=== PATIENT | female | born 1985 | race Caucasian/White ===

== ENCOUNTER → 2017-06-23 | Outpatient (CLI) | payer SELFPAY ==
--- NOTE | 2017-06-24 08:16 | RADIOLOGY REPORT (SQ) ---
EXAM DESCRIPTION: U/S OB TRANSVAGINAL W/O DOP COMPLETED DATE/TIME: 06/23/2017 3:43 pm REASON FOR STUDY: WITH INCONCLUSIVE VIABILITY, NOT APPLICABLE OR UNSPECIFIED O36.80 X0 W INCONCLUSIVE VIABILITY, UNSP Z34.81 ENCOUNTER FOR SUPRVSN OF NORMAL , FIRST TRIM TECHNIQUE: Endovaginal static and realtime grayscale images acquired of the pelvis. Additional selec hemal spectral and color Doppler images recorded. All images stored on PACs. bHC,334 LIMITATIONS: None. FINDINGS: UTERUS: No visualized intrauterine . Uterus measures 9.8 x 5.7 x 4.8 cm in size. Endometrial stripe 9 mm in thickness. No decidual reaction or intrauterine gestational sac is iden tified. Cervix closed, no nabothian cysts. RIGHT ADNEXA: Normal ovary with normal vascular flow. Right ovary 2.6 x 2.4 x 1.6 cm in size. Minimal right adnexal free fluid. No adnexal masses. LEFT ADNEXA: Normal left ovary flow. Left ovary 2.7 x 2.4 x 1.9 cm in size. There is a small 1.6 x 1.4 cm complex cyst left ovary, likely the corpus luteum. Left ovarian ectopic could not entirely be excluded. No adnexal free fluid. No adnexal masses. FREE FLUID: Small amount of posterior cul-de-sac free fluid OTHER: No other significant finding. IMPRESSION: NO VISUALIZED INTRA- OR EXTRAUTERINE . LEFT OVARY HEMORRHAGIC CYST LIKELY THE CORPUS LUTEUM. ECTOPIC CANNOT BE EXCLUDED. FOLLOW-UP ULTRASOUND AND SERIAL BHCG LEVELS STRONGLY RECOMMENDED TO ACCURATELY ASSESS STATU S. COMMENT: THIS REPORT WAS CALLED TO THE ROSE TRUJILLO AT THE [facility] DEPARTMENT, 1545 HOURS 7 TECHNICAL DOCUMENTATION: JOB ID: [id number] [employer]- All Rights Reserved COMPARISON: None. 08/17/2014
== END ==
LOC: RAD 14:14
PROVIDERS: ATTEND Nurse Practitioner Women's Health
DX: O36.80X0 Pregnancy with inconclusive fetal viability, not applicable or unspecified (principal); O34.80 Maternal care for other abnormalities of pelvic organs, unspecified trimester; N83.202 Unspecified ovarian cyst, left side
CPT/HCPCS: 36415; 76817; 84702

== ENCOUNTER → 2017-06-26 | Outpatient (CLI) | payer SELFPAY ==
[~2017-06-26] MED LIST: CEFAZOLIN INJ 1 GM VIAL ONE
== END ==
LOC: OCH 09:35
DX: O36.80X0 Pregnancy with inconclusive fetal viability, not applicable or unspecified (principal); Z3A.00 Weeks of gestation of pregnancy not specified
CPT/HCPCS: 36415; 84702

== ENCOUNTER → 2017-06-27 | Outpatient (CLI) | payer SELFPAY | LOC: OCH 10:11 | DX: O36.80X0 Pregnancy with inconclusive fetal viability, not applicable or unspecified (principal); Z3A.00 Weeks of gestation of pregnancy not specified | CPT/HCPCS: 36415; 84702 ==

== ENCOUNTER 2017-06-28 10:59 | Emergency (ER) | payer SELFPAY ==
[2017-06-28 11:04] VITALS: BP 132/84
[2017-06-28 11:42] LABS: APPEARANCE,URINE CLEAR; BILIRUBIN,URINE NEGATIVE (NEGATIVE); GLUCOSE, URINE NEGATIVE (NEGATIVE); KETONES,URINE NEGATIVE (NEGATIVE); LEUKOCYTE ESTERASE,URINE NEGATIVE (NEGATIVE); NITRITE,URINE NEGATIVE (NEGATIVE); PROTEIN,URINE NEGATIVE (NEGATIVE); URINE SPECIFIC GRAVITY 1.008; UROBILINOGEN,URINE NEGATIVE mg/dL (<2.0)
[2017-06-28 11:48] LABS: ABSOLUTE EOSINOPHILS # (AUTO) 0.1 10^3/uL (0.0-0.6); ABSOLUTE LYMPHOCYTES (AUTO) 1.4 10^3/uL (0.5-4.7); ABSOLUTE MONOCYTES (AUTO) 0.5 10^3/uL (0.1-1.4); ABSOLUTE NEUT (AUTO) 5.9 10^3/uL (1.7-8.2); BASOPHILS % (AUTO) 0.5 % (0-2); EOSINOPHILS % (AUTO) 0.8 % (0-6); HEMATOCRIT 33.2 % (36.0-47.0); HGB HCT DIFFERENCE 2.8; LYMPHOCYTES % (AUTO) 18.2 % (13-45); MEAN CORPUSCULAR HEMOGLOBIN 34.4 pg (27.0-33.4); MEAN CORPUSCULAR HGB CONC 36.1 g/dL (32.0-36.0); MEAN CORPUSCULAR VOLUME 96 fl (80-97); MONOCYTES % (AUTO) 5.9 % (3-13); RED BLOOD COUNT 3.48 10^6/uL (3.72-5.28); RED CELL DISTRIBUTION WIDTH 12.6 % (11.5-14.0); SEGMENTED NEUTROPHILS % (AUTO) 74.6 % (42-78); WHITE BLOOD COUNT 7.9 10^3/uL (4.0-10.5)
--- NOTE | 2017-06-28 11:51 | ER Document Report ---
ED Medical Screen (RME) - General Mode of Arrival: Ambulatory Information source: Patient TRAVEL OUTSIDE OF THE U.S. IN LAST 30 DAYS: No <JAVIER IRVIN - Last Filed: 06/28/17 11:16> <ELAINE ROSENBAUM - Last Filed: 06/28/17 12:31> - General Chief Complaint: Pelvic Pain Stated Complaint: SIDE PAIN Time Seen by Provider: 06/28/17 11:08 Notes: Patient is a 31 year old female presenting to the emergency department for 2 week history of left sided abdominal pain. Patient had an ectopic with a right sided salpingectomy. Patient states 2 weeks ago in [place] she had a transvaginal ultrasound she was . Patient is being seen by the health department for her and her last ultrasound on 06/23 showed a left hemorrhagic cyst, no intrauterine , cannot exclude ectopic. Patient is scheduled for another ultrasound and bloodwork next week but she came in because of the pain. Patient is A2. (JAVIER IRVIN) - Related Data Allergies/Adverse Reactions: No Known Allergies Allergy (Verified 06/28/17 11:03) Home Medications: Current Home Medications No Home Medications 06/28/17 [History] Past Medical History - General Last Menstrual Period: 05/13/17 - Social History Chew tobacco use (# tins/day): No Frequency of alcohol use: None Drug Abuse: Marijuana Pulmonary Medical History: Reports: Hx Asthma - athletic Renal/ Medical History: Denies: Hx Peritoneal Dialysis Psychiatric Medical History: Reports: Hx Anxiety Past Surgical History: Reports: Hx Section, Hx Gynecologic Surgery - Right tube removed due to rupture ectopic, Hx Oral Surgery - Immunizations Hx Diphtheria, Pertussis, Tetanus Vaccination: No History of Influenza Vaccine for 06/2017 - 11/2017 Season: No <JAVIER IRVIN - Last Filed: 06/28/17 11:16> Physical Exam <JAVIER IRVIN - Last Filed: 06/28/17 11:16> <ELAINE ROSENBAUM - Last Filed: 06/28/17 12:31> - Vital signs Vitals: Temp Pulse Resp BP Pulse Ox 98.5 F 105 H 20 132/84 H 100 06/28/17 11:03 06/28/17 11:03 06/28/17 11:03 06/28/17 11:03 06/28/17 11:03 - Notes Notes: GENERAL: Alert, interacts well. No acute distress. LUNGS: No respiratory distress. (JAVIER IRVIN) Mild left lower quadrant abdominal pain, no guarding rigidity or rebounding. ( ELAINE ROSENBAUM) Course - Laboratory Result Diagrams: 06/28/17 11:25 06/28/17 11:25 <ELAINE ROSENBAUM - Last Filed: 06/28/17 12:31> - Vital Signs Vital signs: Temp Pulse Resp BP Pulse Ox 98.5 F 105 H 20 132/84 H 100 06/28/17 11:03 06/28/17 11:03 06/28/17 11:03 06/28/17 11:03 06/28/17 11:03 - Laboratory Laboratory results interpreted by me: 06/28/17 06/28/17 06/28/17 11:25 11:25 11:25 RBC 3.48 L Hct 33.2 L MCH 34.4 H MCHC 36.1 H Beta HCG, Quant 9615.00 H Urine Blood SMALL H Scribe Documentation - Scribe Written by Scribe:: Charlotte Sullivan, 06/28/2017 11:52 acting as scribe for :: Maverick <JAVIER IRVIN - Last Filed: 06/28/17 11:16>
[2017-06-28 12:02] LABS: ALANINE AMINOTRANSFERASE 30 U/L (9-52); ALBUMIN 4.9 g/dL (3.5-5.0); ALKALINE PHOSPHATASE 82 U/L (38-126); ANION GAP 12 (5-19); ASPARTATE AMINO TRANSFERASE 21 U/L (14-36); BILIRUBIN,DIRECT 0.4 mg/dL (0.0-0.4); BILIRUBIN,TOTAL 1.1 mg/dL (0.2-1.3); BLOOD UREA NITROGEN 12 mg/dL (7-20); CALCIUM 9.4 mg/dL (8.4-10.2); CARBON DIOXIDE 25 mmol/L (22-30); CHLORIDE 106 mmol/L (98-107); CREATININE RESULT 0.59 mg/dL (0.52-1.25); GLUCOSE 89 mg/dL (75-110); POTASSIUM 4.3 mmol/L (3.6-5.0); SODIUM 143.4 mmol/L (137-145); TOTAL PROTEIN 8.1 g/dL (6.3-8.2)
--- NOTE | 2017-06-28 13:36 | ER Document Report ---
ED General - General Chief Complaint: Pelvic Pain Stated Complaint: SIDE PAIN Time Seen by Provider: 06/28/17 11:08 Mode of Arrival: Ambulatory Information source: Patient Notes: 31-year-old female who has had a history of an ectopic on the right requiring surgical removal of her tube in April presents with complaints of left lower quadrant abdominal pain with . Patient notes she has been to approximately 6 emergency departments regarding this pain. She has been told it is too early to see the . Patient notes she has an appointment on . Patient denies any fevers or chills notes the pain is not too bad today but has been more severe in the past. Patient does note that the pain that she was having that was severe was similar to her previous ectopic Patient has had multiple hCGs TRAVEL OUTSIDE OF THE U.S. IN LAST 30 DAYS: No - HPI Onset: Other Onset/Duration: Intermittent - 2-3 weeks Quality of pain: Sharp Severity: Mild Pain Level: 1 Associated symptoms: Other Exacerbated by: Denies Relieved by: Denies Similar symptoms previously: Yes Recently seen / treated by doctor: Yes - Related Data Allergies/Adverse Reactions: No Known Allergies Allergy (Verified 06/28/17 11:03) Home Medications: Current Home Medications No Home Medications 06/28/17 [History] Past Medical History - General Information source: Patient Last Menstrual Period: 05/13/17 - Social History Smoking Status: Current Some Day Smoker Cigarette use (# per day): Yes Chew tobacco use (# tins/day): No Smoking Education Provided: No Frequency of alcohol use: None Drug Abuse: Marijuana Family History: Reviewed & Not Pertinent Pulmonary Medical History: Reports: Hx Asthma - athletic Renal/ Medical History: Denies: Hx Peritoneal Dialysis Psychiatric Medical History: Reports: Hx Anxiety Past Surgical History: Reports: Hx Section, Hx Gynecologic Surgery - Right tube removed due to rupture ectopic, Hx Oral Surgery - Immunizations Hx Diphtheria, Pertussis, Tetanus Vaccination: No Review of Systems - Review of Systems Notes: REVIEW OF SYSTEMS: CONSTITUTIONAL : Denies fever, chills, or sweats. Denies recent illness. EENT: Denies eye, ear, throat, or mouth pain or symptoms. Denies nasal or sinus congestion or discharge. Denies throat, tongue, or mouth swelling or difficulty swallowing. CARDIOVASCULAR: Denies chest pain. Denies palpitations or racing or irregular heart beat. Denies ankle edema. RESPIRATORY: Denies cough, cold, or chest congestion. Denies shortness of breath, difficulty breathing, or wheezing. GASTROINTESTINAL: Denies abdominal pain or distention. Denies nausea, vomiting , or diarrhea. Denies blood in vomitus, stools, or per rectum. Denies black, tarry stools. Denies constipation. GENITOURINARY: Denies difficulty urinating, painful urination, burning, frequency, blood in urine, or discharge. FEMALE GENITOURINARY: Admits to left lower quadrant pelvic pain MUSCULOSKELETAL: Denies back or neck pain or stiffness. Denies joint pain or swelling. SKIN: Denies rash, lesions or sores. HEMATOLOGIC : Denies easy bruising or bleeding. LYMPHATIC: Denies swollen, enlarged glands. NEUROLOGICAL: Denies confusion or altered mental status. Denies passing out or loss of consciousness. Denies dizziness or lightheadedness. Denies headache. Denies weakness or paralysis or loss of use of either side. Denies problems with gait or speech. Denies sensory loss, numbness, or tingling. Denies seizures. PSYCHIATRIC: Denies anxiety or stress. Denies depression, suicidal ideation, or homicidal ideation. ALL OTHER SYSTEMS REVIEWED AND NEGATIVE. PHYSICAL EXAMINATION: GENERAL: Well-appearing, well-nourished and in no acute distress. HEAD: Atraumatic, normocephalic. EYES: Pupils equal round and reactive to light, extraocular movements intact, conjunctiva are normal. ENT: Nares patent, oropharynx clear without exudates. Moist mucous membranes. NECK: Normal range of motion, supple without lymphadenopathy LUNGS: Breath sounds clear to auscultation bilaterally and equal. No wheezes rales or rhonchi. HEART: Regular rate and rhythm without murmurs ABDOMEN: Soft, nontender, nondistended abdomen. No guarding, no rebound. No masses appreciated. Female : deferred Musculoskeletal: Normal range of motion, no pitting or edema. No cyanosis. NEUROLOGICAL: Cranial nerves grossly intact. Normal speech, normal gait. Normal sensory, motor exams PSYCH: Normal mood, normal affect. SKIN: Warm, Dry, normal turgor, no rashes or lesions noted. Dictation was performed using [employer] voice recognition software Physical Exam - Vital signs Vitals: Temp Pulse Resp BP Pulse Ox 98.5 F 105 H 20 132/84 H 100 06/28/17 11:03 06/28/17 11:03 06/28/17 11:03 06/28/17 11:03 06/28/17 11:03 Course - Re-evaluation Re-evalutation: 06/28/17 13:35 I was notified the patient does in fact have an ectopic on ultrasound , her quant is noted 9000 06/28/17 13:37 Dr warren notified of ectopic , awaiting official report 06/28/17 15:07 Dr warren , patient and I had a very long conversation. It was expressed to the patient multiple times that appropriate care would be for surgical intervention to evaluate for the ectopic. The patient herself refused this procedure states she would like a second opinion. Since she wishes to leave AGAINST MEDICAL ADVICE I expressed to her my concerns and pleaded with her to follow-up at any other facility here and gave her instructions to go to the larger facilities that would be able to assist her most appropriately. Patient was very happy with this and wishes to go to [place] once she leaves here. I again expressed my concerns regarding her leaving AGAINST MEDICAL ADVICE she states she understands, has been to 6 other emergency departments throughout this event and wishes for yet another suggestion After performing a Medical Screening Examination, I spoke with the patient at length in regards to leaving the hospital against medical advice. I do not believe the patient should leave but the patient is alert oriented x4, understands the risks and benefits of staying and leaving including disability, loss of ovary, tube and . Pt understands that she can return at any time for further care and is more than welcome to do so. Pt verbalizes this understanding. She will be given copies of today's labs as well as previous labs, she will be given today's report so that she may present this to any facility that she wishes so they can better understand her presentation 06/28/17 15:10 06/28/17 17:01 - Vital Signs Vital signs: Temp Pulse Resp BP Pulse Ox 98.5 F 105 H 20 132/84 H 100 06/28/17 11:03 06/28/17 11:03 06/28/17 11:03 06/28/17 11:03 06/28/17 11:03 - Laboratory Result Diagrams: 06/28/17 11:25 06/28/17 11:25 Laboratory results interpreted by me: 06/28/17 06/28/17 06/28/17 11:25 11:25 11:25 RBC 3.48 L Hct 33.2 L MCH 34.4 H MCHC 36.1 H Beta HCG, Quant 9615.00 H Urine Blood SMALL H - Diagnostic Test Radiology reviewed: Image reviewed, Reports reviewed Discharge - Discharge Clinical Impression: Ectopic Qualifiers: Location of ectopic : unspecified location Intrauterine status: without intrauterine Qualified Code(s): O00.90 - Unspecified ectopic without intrauterine Condition: Critical Disposition: AGAINST MEDICAL ADVICE Additional Instructions: You must go directly to any facility of your choice, attached are lab results as well as imaging results which note my concerns for ectopic . I do not believe you should be leaving, I believe you should stay for surgical intervention, but you are alert and oriented and understand the risks and benefits and have the choice to leave as you wish
--- NOTE | 2017-06-28 13:47 | RADIOLOGY REPORT (SQ) ---
EXAM DESCRIPTION: U/S OB TRANSVAG W/DOPPLER COMPLETED DATE/TIME: 06/28/2017 1:34 pm REASON FOR STUDY: LLQ abd pain, 6 wk, 3d preg, r/o ectopic, heteroto COMPARISON: 06/23/2017 TECHNIQUE: Transvaginal and transabdominal static and realtime grayscale images acquired of the pelv is. Additional selected spectral and color Doppler images recorded. All images stored on PACs. bHC,847 LIMITATIONS: None. FINDINGS: UTERUS: No masses. No anomalies. GESTATIONAL SAC: Not identified YOLK SAC: Not identified POLE: Not identified RIGHT ADNEXA: Normal ovary with normal vascular flow. Small amount of free fluid is identified. No adnexal masses. LEFT ADNEXA: A complex area is identified adjacent to the left ovary and the possibility of an ectopi c gestation should be considered No adnexal free fluid. No adnexal masses. FREE FLUID: None. OTHER: No other significant finding. IMPRESSION: IUP is not identified. Complex area is identified in the left adnexal region suspicious for an ectopic. Clinical correlation is recommended. BHCG LEVEL APPROPRIATE FOR ENDOMETRIAL FINDINGS. CONSIDER F/U BHCG AND/OR ULTRASOUND FOR VERIFICATION. Trimester of : First - 0 to 13 weeks. TECHNICAL DOCUMENTATION: JOB ID: [id number] [employer]- All Rights Reserved
== END 2017-06-28 15:30 | disposition left against medical advice (07) ==
LOC: ER 10:59
DX: O00.90 Unspecified ectopic pregnancy without intrauterine pregnancy (principal); R10.2 Pelvic and perineal pain; R10.32 Left lower quadrant pain; F17.210 Nicotine dependence, cigarettes, uncomplicated
CPT/HCPCS: 36415; 76817; 80053; 81001; 84702; 85025; 93976; 99284

== ENCOUNTER 2017-07-06 19:26 | Inpatient (IN) | payer MEDICAID ==
[2017-07-06] MEDS ORDERED: FENTANYL CITRATE INJ/PF 100 MCG/2 ML AMPUL ONE ×2 (19:35→22:04)
[2017-07-06] MEDS ORDERED: NORMAL SALINE 1000 ML 1,000 ML IV ONE (19:39)
[2017-07-06 19:46] LABS: ABSOLUTE BASOPHILS # (AUTO) 0.1 10^3/uL (0.0-0.2); ABSOLUTE EOSINOPHILS # (AUTO) 0.1 10^3/uL (0.0-0.6); ABSOLUTE LYMPHOCYTES (AUTO) 2.3 10^3/uL (0.5-4.7); ABSOLUTE MONOCYTES (AUTO) 0.6 10^3/uL (0.1-1.4); ABSOLUTE NEUT (AUTO) 9.5 10^3/uL (1.7-8.2); BASOPHILS % (AUTO) 0.6 % (0-2); HEMATOCRIT 30.8 % (36.0-47.0); HEMOGLOBIN 10.8 g/dL (12.0-15.5); HGB HCT DIFFERENCE 1.6; LYMPHOCYTES % (AUTO) 18.3 % (13-45); MEAN CORPUSCULAR HEMOGLOBIN 33.7 pg (27.0-33.4); MEAN CORPUSCULAR HGB CONC 35.2 g/dL (32.0-36.0); MEAN CORPUSCULAR VOLUME 96 fl (80-97); MONOCYTES % (AUTO) 4.4 % (3-13); RED BLOOD COUNT 3.22 10^6/uL (3.72-5.28); RED CELL DISTRIBUTION WIDTH 12.8 % (11.5-14.0); SEGMENTED NEUTROPHILS % (AUTO) 75.7 % (42-78); WHITE BLOOD COUNT 12.5 10^3/uL (4.0-10.5)
--- NOTE | 2017-07-06 19:49 | ER Document Report ---
ED General - General Chief Complaint: Abdominal Pain Stated Complaint: PELVIC PAIN Time Seen by Provider: 07/06/17 19:29 Notes: Patient is a 31-year-old female with a prior history of an ectopic with a right salpingectomy with a known ectopic on the left who presents with acute onset of severe left lower quadrant abdominal pain. Patient has received 1 dose of methotrexate at [facility] for her ectopic in the left fallopian tube. She states that she was doing well until tonight when she was cooking dinner when she developed an acute onset of pain to the left lower abdomen and flank. The pain is described as a severe, constant, stabbing pain to the affected area. Patient denies ever experiencing pain like this in the past. Nothing seems to improve or worsen the pain. She has had associated nausea without vomiting. She came by EMS to the emergency department due to the degree of pain. TRAVEL OUTSIDE OF THE [place].S. IN LAST 30 DAYS: No - Related Data Allergies/Adverse Reactions: No Known Allergies Allergy (Verified 06/28/17 11:03) Past Medical History - General Information source: Patient - Social History Smoking Status: Never Smoker Frequency of alcohol use: None Drug Abuse: None Lives with: Spouse/Significant other Family History: Reviewed & Not Pertinent Pulmonary Medical History: Reports: Hx Asthma - athletic Renal/ Medical History: Denies: Hx Peritoneal Dialysis Psychiatric Medical History: Reports: Hx Anxiety Past Surgical History: Reports: Hx Section, Hx Gynecologic Surgery - Right tube removed due to rupture ectopic, Hx Oral Surgery - Immunizations Hx Diphtheria, Pertussis, Tetanus Vaccination: No Review of Systems - Review of Systems Notes: Constitutional: Negative for fever. HENT: Negative for sore throat. Eyes: Negative for visual changes. Cardiovascular: Negative for chest pain. Respiratory: Negative for shortness of breath. Gastrointestinal: Positive for abdominal pain and nausea Genitourinary: Negative for dysuria. Musculoskeletal: Negative for back pain. Skin: Negative for rash. Neurological: Negative for headaches, weakness or numbness. 10 point ROS negative except as marked above and in HPI. Physical Exam - Vital signs Vitals: Temp Pulse Resp BP Pulse Ox 97.8 F 72 22 H 117/63 100 07/06/17 19:30 07/06/17 19:30 07/06/17 19:30 07/06/17 19:30 07/06/17 19:30 Interpretation: Normal Notes: PHYSICAL EXAMINATION: GENERAL: Patient appears to be in severe pain, writhing in the bed. HEAD: Atraumatic, normocephalic. EYES: Pupils equal round and reactive to light, extraocular movements intact, sclera anicteric, conjunctiva are normal. ENT: nares patent, oropharynx clear without exudates. Moderately dry mucous membranes. NECK: Normal range of motion, supple without lymphadenopathy LUNGS: Breath sounds clear to auscultation bilaterally and equal. No wheezes rales or rhonchi. HEART: Regular rate and rhythm without murmurs ABDOMEN: Somewhat rigid abdomen diffusely in the lower quadrants with exquisite tenderness to palpation of the left lower quadrant and suprapubic region. There is involuntary guarding. Very worrisome for a surgical abdomen. EXTREMITIES: Normal range of motion, no pitting or edema. No cyanosis. NEUROLOGICAL: No focal neurological deficits. Moves all extremities spontaneously and on command. PSYCH: Somewhat anxious SKIN: Warm, Dry, normal turgor, no rashes or lesions noted. Course - Re-evaluation Re-evalutation: 07/06/17 19:46 Patient presents with acute onset of severe left lower quadrant, left adnexal pain that started approximately 30 minutes prior to arrival. Immediate concern is for ruptured ectopic given the patient has a known left sided ectopic and did receive her first dose of methotrexate for termination of this ectopic on Friday. Patient's abdominal exam is notable for exquisite tenderness to the lower abdomen over the suprapubic and left lower quadrant regions. There is associated guarding but no rigidity. Bedside fast exam does not demonstrate any free fluid at this time although patient did just develop her symptoms approximately 30 minutes prior to arrival and at least 500 cc of free fluid is required to see a positive fast examination and patient may not have yet accumulated this much blood in the setting of a possible ruptured ectopic. Immediately upon completion of my initial assessment, I contacted the FURNITURE REPAIR TECHNICIAN on-call Dr. Packer. She requested completion of a transvaginal ultrasound as long as patient is hemodynamically stable which the patient is at this time with normal vital signs at time of my assessment. Patient has been placed on a professional healthcare representative, labs including type and screen have been obtained. Analgesia with fentanyl has been provided. Patient will continue to be watched very closely for any worsening of her condition. She is chronically ill at this time will require frequent ongoing assessment. 07/06/17 20:16 Dr. Packer has assessed the patient and encouraged her to go for a emergent surgery for concern of ectopic . The patient has refused the surgery despite Dr. Packer explaining to her that this could result in her . The patient's explanation is that she does not wish to lose the tube on her left side become infertile. She has verbalized understanding that she could from delay of surgery. She remains hemodynamically stable at this time but continues to be critically ill with concern of an ongoing ruptured ectopic with refusal of care. 07/06/17 21:24 I again went to the bedside after reviewing the results of the ultrasound noticed and the patient's blood pressure is beginning to decline now into the 90 systolic. I again reviewed with the patient the severity of this diagnosis and that the natural history of an acute ruptured ectopic would be that she would eventually bleed and . Patient continues to have exquisite pain requiring IV fentanyl administration. Her heart rate has continued up trending and is now up to 98 bpm from 74 at time of presentation. Her dropping pressure, rising heart rate, and free fluid on the ultrasound is all concerning for an increasingly worrisome ruptured ectopic . I also spoke to her Adam on the phone with the patient in the room who likewise agrees that the patient should go for surgery and should not delay any further. After these measures the patient did agree that she would like to go forward with surgery and has understood the risks and benefits of each approach. I have again contacted Dr. Packer who will take the patient to surgery. - Vital Signs Vital signs: Temp Pulse Resp BP Pulse Ox 97.5 F 81 16 123/70 100 07/07/17 02:51 07/07/17 02:51 07/07/17 02:51 07/07/17 02:51 07/07/17 02:51 - Laboratory Result Diagrams: 07/06/17 19:30 07/06/17 19:30 Laboratory results interpreted by me: 07/06/17 07/06/17 07/06/17 19:30 19:30 19:30 WBC 12.5 H RBC 3.22 L Hgb 10.8 L Hct 30.8 L MCH 33.7 H Absolute Neutrophils 9.5 H Potassium 3.4 L Glucose 117 H Beta HCG, Quant 66683.00 H Crossmatch See Detail Critical Care Note - Critical Care Note Total time excluding time spent on procedures (mins): 36 Comments: Critical care time spent obtaining history from patient or surrogate, discussions with consultants, development of treatment plan with patient or surrogate, evaluation of patient's response to treatment, examination of patient , ordering and performing treatments and interventions, ordering and review of laboratory studies, re-evaluation of patient's condition, ordering and review of radiographic studies and review of old charts Discharge - Discharge Clinical Impression: Ruptured ectopic , Acute abdomen Condition: Fair Disposition: ADMITTED INPATIENT Admitting Provider: [facility] Unit Admitted: Post
[2017-07-06] MEDS: FENTANYL CITRATE INJ/PF 100 MCG/2 ML AMPUL IV PRN ×2 (19:56→21:35)
[2017-07-06 20:03] LABS: ALANINE AMINOTRANSFERASE 26 U/L (9-52); ALBUMIN 4.4 g/dL (3.5-5.0); ALKALINE PHOSPHATASE 76 U/L (38-126); ANION GAP 14 (5-19); ASPARTATE AMINO TRANSFERASE 23 U/L (14-36); BILIRUBIN,DIRECT 0.2 mg/dL (0.0-0.4); BILIRUBIN,TOTAL 0.7 mg/dL (0.2-1.3); BLOOD UREA NITROGEN 7 mg/dL (7-20); CALCIUM 8.9 mg/dL (8.4-10.2); CARBON DIOXIDE 23 mmol/L (22-30); CHLORIDE 104 mmol/L (98-107); CREATININE RESULT 0.55 mg/dL (0.52-1.25); GLUCOSE 117 mg/dL (75-110); POTASSIUM 3.4 mmol/L (3.6-5.0); SODIUM 140.9 mmol/L (137-145); TOTAL PROTEIN 7.7 g/dL (6.3-8.2)
--- NOTE | 2017-07-06 21:10 | RADIOLOGY REPORT (SQ) ---
EXAM DESCRIPTION: U/S OB TRANSVAGINAL W/O DOP COMPLETED DATE/TIME: 07/06/2017 8:57 pm REASON FOR STUDY: llq pain, ruptured ectopic? COMPARISON: 06/28/2017 and 06/23/2017. TECHNIQUE: Transvaginal static and realtime grayscale images acquired of the pelvis. Additional pinky cted spectral and color Doppler images recorded. All images stored on PACs. BHC,634. Prior values were 9,615 (06/28/2017) and 4,334 (06/23/2017). LIMITATIONS: None. FINDINGS: UTERUS: No visualized intrauterine . RIGHT ADNEXA: Normal ovary with normal vascular flow. Moderate free fluid. No adnexal masses. LEFT ADNEXA: Normal ovary with normal vascular flow. Moderate free fluid. Complex heterogenous area adjacent to the ovary measuring 3.1 x 3.7 x 4.8 cm with increased vasculari ty on Doppler imaging. FREE FLUID: Moderate free fluid. OTHER: No other significant finding. IMPRESSION: NO INTRAUTERINE . COMPLEX HETEROGENOUS AREA ADJACENT TO THE LEFT OVARY WITH INCREASED VASCULARITY CONCERNING FOR ECTOPI C. THERE IS ALSO FREE FLUID WHICH IS CONCERNING FOR RUPTURED ECTOPIC. TECHNICAL DOCUMENTATION: JOB ID: [id number] [employer]- All Rights Reserved
--- NOTE | 2017-07-06 21:40 | PDOC H&P ---
History of Present Illness Admission Date/PCP: 07/06/17 20:15 Patient complains of: Left lower quadrant pain and suprapubic pain History of Present Illness: CYNTHIA CASTILLO is a 31 year old female (h/o Right Salpingectomy for Ectopic Mid Apr 2017, h/o section x 2) at 7+5ega by LMP of 05/13/2017 presents with known ectopic (complex left adnexal mass noted on US 06/28). She was diagnosed 06/[address] Gerardo and surgery recommended. However, she refused and left AMA and went to [facility]. At [facility] she was given MTX on Friday - reports her BHCG was approx 24510. She was supposed to recieve a 2nd dose of MTX on Friday when she presented for repeat BHCG at [facility] - value unknown. She presents today with sudden onset of debilitating pain 06/17 and she was in position which did not improve pain - EMS was called and she was brought in to the hospital. Past Medical History LMP: 05/13/2017 Gynecological Infection: No Pulmonary Medical History: Reports: Asthma - athletic Past Surgical History Past Surgical History: Right Salpingectomy 04/2017 Past Surgical History: Reports: Section, Other - Right Salpingectomy Social History Information Source: Patient Smoking Status: Current Every Day Smoker - 3-4cig per day Cigars Per Day: 3 Frequency of Alcohol Use: None Hx Recreational Drug Use: No Drugs: None Hx Prescription Drug Abuse: No Family History Family History: None, Reviewed & Not Pertinent Parental Family History Reviewed: No Children Family History Reviewed: NA Sibling(s) Family History Reviewed.: NA Medication/Allergy Home Medications: No Home Medications 06/28/17 Allergies/Adverse Reactions: No Known Allergies Allergy (Verified 06/28/17 11:03) Review of Systems Constitutional: ABSENT: chills, fever(s), headache(s), weight gain, weight loss Cardiovascular: ABSENT: chest pain, dyspnea on exertion, edema, orthropnea, palpitations Respiratory: ABSENT: cough, hemoptysis Gastrointestinal: PRESENT: abdominal pain, nausea. ABSENT: coffee ground emesis , vomiting Genitourinary: ABSENT: dysuria, hematuria Musculoskeletal: ABSENT: joint swelling Integumentary: ABSENT: rash, wounds Neurological: ABSENT: abnormal gait, abnormal speech, confusion, dizziness, focal weakness, syncope Psychiatric: ABSENT: anxiety, depression, homidical ideation, suicidal ideation Endocrine: ABSENT: cold intolerance, heat intolerance, polydipsia, polyuria Hematologic/Lymphatic: ABSENT: easy bleeding, easy bruising Physical Exam - Physical Exam General appearance: PRESENT: no acute distress, well-developed, well-nourished Head exam: PRESENT: atraumatic, normocephalic Neck exam: PRESENT: full ROM. ABSENT: carotid bruit, JVD, lymphadenopathy, thyromegaly Cardiovascular exam: PRESENT: RRR. ABSENT: diastolic murmur, rubs, systolic murmur Vascular exam: PRESENT: normal capillary refill GI/Abdominal exam: PRESENT: guarding, normal bowel sounds, soft, tenderness - LLQ ttp, unable to determine rebound.. ABSENT: distended, mass, organolmegaly, rebound, rigid Rectal exam: PRESENT: deferred Extremities exam: PRESENT: full ROM. ABSENT: calf tenderness, clubbing, pedal edema Neurological exam: PRESENT: alert, awake, oriented to person, oriented to place , oriented to time, oriented to situation, CN II-XII grossly intact. ABSENT: motor sensory deficit Psychiatric exam: PRESENT: appropriate affect, normal mood. ABSENT: homicidal ideation, suicidal ideation Skin exam: PRESENT: dry, intact, warm. ABSENT: cyanosis, rash Result Laboratory Results: Hb/Hct 07/07 [facility] [place] [id number] Status: Pending Assessment & Plan - Diagnosis (1) Ectopic without intrauterine Qualifiers: Location of ectopic : unspecified location Qualified Code(s): O00.90 - Unspecified ectopic without intrauterine Is this a current diagnosis for this admission?: Yes Plan: Pt with ectopic . Known ectopic - s/p MTX. Reviewed that increased pain does occur after MTX - however with review of prior US would recommend surgical intervenetion. Reviewed that Surgical treatment recommended due to concern for ruptured ectopic and risk of /blood transfusion if refusal of surgery. Pt declines surgery and reports that she will agree to admission for observation and if need for surgical management again recommended that she would consider it. Will perform serial abd exam and serial labs. Pt initially seen at 2030 and refused surgery. Pt now at 2130 pt has consented to surgery. Consents reviewed and risk of removal of tube and possibly ovary were reviewed with pt. If need for removal of left tube is a distinct possibility which would unfortunately effectively cause tubal sterilization since contralateral tube is already lost due to prior ectopic . Pt voices understanding and desires to proceed with surgery. - Time Time Spent: 30 to 50 Minutes Critical Time spent with patient: Less than 15 minutes Smoking Cessation Education: 3 to 10 minutes Medications reviewed and adjusted accordingly: Yes Anticipated discharge: Home Within: within 48 hours - Inpatient Certification Based on my medical assessment, after consideration of the patient's comorbidities, presenting symptoms, or acuity I expect that the services needed warrant INPATIENT care.: Yes I certify that my determination is in accordance with my understanding of Medicare's requirements for reasonable and necessary INPATIENT services [42 CFR 412.3e].: Yes Medical Necessity: Need Close Monitoring Due to Risk of Patient Decompensation, Need for Surgery, Risk of Complication if Not Cared For in Hospital 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
[2017-07-06] MEDS ORDERED: CEFAZOLIN 2 GM/D5W RTU 2 GM/50 ML RTUPB IV ONE ×2 (22:03→22:06)
[2017-07-06] MEDS ORDERED: MIDAZOLAM 2 MG/2 ML INJ ONE (22:04)
[2017-07-06] MEDS ORDERED: ACETAMINOPHEN 100 ML IV ONE (22:05)
[2017-07-06] MEDS ORDERED: PROPOFOL INJ 200 MG/20 ML VIAL IV ONE (22:05)
[2017-07-06] MEDS ORDERED: HYDROMORPHONE HCL INJ/PF 2 MG/ML AMPULE ONE (22:05)
[2017-07-06] MEDS ORDERED: BUPIVACAINE HCL 0.25 % INJ/PF (2.5 MG/1 ML) 30 ML VIAL ONE (22:26)
[2017-07-06] MEDS ORDERED: FENTANYL CITRATE INJ/PF 100 MCG/2 ML AMPUL IV PRN ×3 (23:07)
[2017-07-06] MEDS ORDERED: PROMETHAZINE HCL INJ 25 MG/1 ML VIAL IV PRN ×2 (23:07)
[2017-07-06] MEDS ORDERED: MEPERIDINE HCL/PF INJ 25 MG/1 ML DISP.SYRIN IV PRN (23:07)
[2017-07-06] MEDS ORDERED: MORPHINE SULFATE 10 MG/ML INJ IV PRN (23:07)
[2017-07-06] MEDS ORDERED: DIPHENHYDRAMINE HCL 50 MG/ML VIAL IV PRN (23:07)
[2017-07-06] MEDS ORDERED: OXYCODONE-ACETAMINOPHEN 5-325 MG TABLET PO PRN ×2 (23:07)
[2017-07-07] MEDS ORDERED: HYDROMORPHONE HCL INJ/PF 2 MG/ML AMPULE ONE ×2 (01:32→01:43)
--- NOTE | 2017-07-07 01:41 | Brief Operative Note ---
BRIEF OPERATIVE REPORT DATE OF SURGERY: 07/07/17 TIME OF SURGERY: 01:15 PREOPERATIVE DIAGNOSIS: Ruptured Ectopic POSTOPERATIVE DIAGNOSIS: Ruptured Ectopic in Left Fallopian tube, Pelvic Adhesive Disease, Rush Graham George Syndrome SURGEON: TAMIKO GERARD FINDINGS: 400ml of Hemoperitoneum, Omental adhesions encasing ectopic . Omental bleeding required exploratory laparotomy and Intraoperative Consult with Dr. Marmolejo. Severely distended left fallopian tube with blunted fimbriae and hemorrhage extending from distal end of fallopian tube. IVF 5L, UOP 600ml, EBL 800ml and Hemoperitoneum 400ml. Total EBL 1200ml, 2 units of PRBCs, 2 Grams of Ancef preop and 2 Grams Ancef redosed at conlusion of procedure. COMPLICATIONS: Exploratory Laparotomy ESTIMATED BLOOD LOSS: 1200ml TISSUE REMOVED OR ALTERED: left fallopian tube, ectopic , Omentum TECHNICAL PROCEDURE: Operative Laparoscopy with DILAN, Left Salpingectomy, Exploratory Laparotomy with Omentectomy and placement of Quang Drain.
[2017-07-07] MEDS ORDERED: LORAZEPAM INJ 2 MG/1 ML VIAL ONE (01:43)
--- NOTE | 2017-07-07 03:07 | OPERATIVE REPORT E ---
Operative Report NAME: CYNTHIA CASTILLO : 1985 AGE: 31Y DATE OF SURGERY: 07/07/2017 ROOM: 209 PREOPERATIVE DIAGNOSIS: Intraabdominal bleeding status post laparoscopic left salpingectomy with extraction of ectopic . POSTOPERATIVE DIAGNOSIS: Intraabdominal bleeding status post laparoscopic left salpingectomy with extraction of ectopic with bleeding from greater omentum and left pelvic sidewall. PROCEDURE PERFORMED: Control of bleeding from greater omentum and left pelvic sidewall. SURGEON: TRAVON MOTA M.D. METAL EXPEDITER: Candice Packer M.D. ANESTHESIA: General. COMPLICATIONS: None. ESTIMATED BLOOD LOSS: See dictation below. INDICATIONS FOR INTERVENTION: The patient is a 31-year-old female undergoing emergent laparoscopic extraction of ectopic by Dr. Candice Packer at approximately midnight 07/06/2017. Please see Dr. Packer's dictation for her portion of the operation. PROCEDURE: After she completed the procedure laparoscopically, there was a moderate amount of intraperitoneal bleeding that she could not ascertain the source. Therefore, she converted to an open procedure. When I arrived in the room, Dr. Packer had approached the patient through a Pfannenstiel incision and was into the deep muscle-splitting component of the procedure. I assisted her with getting entry into the peritoneal cavity. We immediately packed off the exposed pelvis and allowed anesthesia to catch up in terms of crystalloid and blood product transfusion. The patient did remain hemodynamically stable throughout the course, and had a Araiza catheter continue to drain urine. A large Jeffrey type wound marine firefighter was inserted into position and we proceeded methodically to remove our packs, to try to ascertain where the bleeding was coming from. There was approximately 500 mL of blood eventually evacuated from the peritoneal cavity. Findings were significant for a completely intact uterus, and a right tube and ovary intact. There was some scarring between the anterior surface of the uterus and the posterior surface of the bladder. A Araiza catheter was in position. The left ovary and periovarian tissue, specifically the pelvic sidewall, had some inflammatory changes which were oozing. We aspirated out more clots and blood from the mid-abdomen. We brought the omentum into the free space of our working area and identified active arterial oozing, and these 3 sites were tied off with clamps and 0 Vicryl suture. We irrigated out the peritoneal cavity several times and found some residual blood up around the right paracolic gutter and tip of the liver. There were adhesions between the anterior surface of the liver and the abdominal wall consistent with Rush Graham George syndrome. We carefully studied this area and there did not appear to be any mechanical bleeding from this area. We irrigated the peritoneal cavity out, again checked methodically the retroperitoneum and the true pelvis, and there appeared to be no violation of the retroperitoneal space and no hematoma. We felt we had the bleeding controlled again, in retrospect, predominately from the edges of the greater omentum which had been affixed to the adhesions around the ectopic . Hemostasis was now achieved formally using FloSeal and attendant agents over the left pelvic sidewall and ovary. We inspected the peritoneal cavity for any mechanical bleeding and there was none. I closed the musculature in midline with 2 #1 double stranded PDS sutures. The remainder of the abdominal wall was closed with Dr. Packer. Of note, prior to closing the peritoneal cavity, we did place a Quang drain, large, through the left lower port site incision, trimmed it the appropriate length, tucked it into the pouch of Kt, and sewed it to the skin with 2-[address] Packer dictated the conclusion of the procedure. DICTATING PHYSICIAN: TRAVON MOTA M.D. [id number] ALEYDA#: [id number] ID: [id number] JOB#: [id number] ACCT: [id number] cc:TRAVON MOTA M.D. >
[2017-07-07] MEDS ORDERED: ACETAMINOPHEN 100 ML IV ONE (04:00)
[2017-07-07] MEDS: OXYCODONE-ACETAMINOPHEN 5-325 MG TABLET PO PRN ×4 (04:05→22:37)
[2017-07-07] MEDS: RINGERS SOLUTION,LACTATED 1,000 ML IV PRN ×3 (04:07→22:29)
[2017-07-07 06:12] LABS: HEMATOCRIT 30.6 % (36.0-47.0); HEMOGLOBIN 10.5 g/dL (12.0-15.5); HGB HCT DIFFERENCE 0.9; MEAN CORPUSCULAR HEMOGLOBIN 31.6 pg (27.0-33.4); MEAN CORPUSCULAR HGB CONC 34.5 g/dL (32.0-36.0); RED BLOOD COUNT 3.33 10^6/uL (3.72-5.28); RED CELL DISTRIBUTION WIDTH 14.8 % (11.5-14.0)
[2017-07-07] MEDS ORDERED: HYDROMORPHONE HCL INJ/PF 2 MG/ML AMPULE IV ONE (06:15)
[2017-07-07 06:22] LABS: MEAN CORPUSCULAR VOLUME 92 fl (80-97)
[2017-07-07] MEDS: ONDANSETRON HCL INJ/PF 4 MG/2 ML SDV IV PRN ×2 (06:22→21:04)
[2017-07-07 06:44] LABS: ANISOCYTOSIS SLIGHT; BAND NEUTROPHILS % (MANUAL) 2 % (3-5); BASOPHILS % (MANUAL) 0 % (0-2); EOSINOPHILS % (MANUAL) 0 % (0-6); LYMPHOCYTES % (MANUAL) 3 % (13-45); TOTAL CELLS COUNTED 100; TOXIC GRANULATION 1+; TOXIC VACUOLATION PRESENT
[2017-07-07] MEDS ORDERED: SUCCINYLCHOLINE CHLORIDE INJ 200 MG/10 ML VIAL ONE (08:41)
[2017-07-07] MEDS ORDERED: ROCURONIUM BROMIDE INJ 50 MG/5 ML VIAL IV ONE (08:41)
[2017-07-07] MEDS ORDERED: GLYCOPYRROLATE INJ 0.4 MG/2 ML VIAL ONE (08:41)
[2017-07-07] MEDS ORDERED: ONDANSETRON HCL INJ/PF 4 MG/2 ML SDV ONE (08:41)
[2017-07-07] MEDS ORDERED: NEOSTIGMINE METHYLSULFATE 10 MG/10 ML VIAL ONE (08:41)
[2017-07-07] MEDS: HYDROXYZINE PAMOATE 50 MG CAPSULE PO PRN (09:34)
--- NOTE | 2017-07-07 10:43 | PDOC PROGRESS REPORT ---
Subjective Subjective:: Pt reports moderate pain, no n/v No new complaints Physical Exam - Physical Exam Vital Signs: Temp Pulse Resp BP Pulse Ox 98.1 F 111 H 16 106/81 98 07/07/17 06:53 07/07/17 06:53 07/07/17 06:53 07/07/17 06:53 07/07/17 06:53 Intake & Output 07/06/17 07/07/17 07/08/17 06:59 06:59 06:59 Intake Total 0 Output Total 610 Balance -610 General appearance: PRESENT: no acute distress, cooperative, well-developed GI/Abdominal exam: PRESENT: hypoactive bowel sounds - Incision dressings are clean/dry/intact, soft Result Laboratory Results: 07/07/17 05:58 07/07/17 05:58 WBC 21.0 H RBC 3.33 L Hgb 10.5 L Hct 30.6 L MCV 92 D MCH 31.6 MCHC 34.5 RDW 14.8 H Plt Count 164 Seg Neutrophils % Not Reportable Lymphocytes % Not Reportable Monocytes % Not Reportable Eosinophils % Not Reportable Basophils % Not Reportable Absolute Neutrophils Not Reportable Absolute Lymphocytes Not Reportable Absolute Monocytes Not Reportable Absolute Eosinophils Not Reportable Absolute Basophils Not Reportable Impressions: Obstetrics Ultrasound 07/06/17 19:42 IMPRESSION: NO INTRAUTERINE . COMPLEX HETEROGENOUS AREA ADJACENT TO THE LEFT OVARY WITH INCREASED VASCULARITY CONCERNING FOR ECTOPIC. THERE IS ALSO FREE FLUID WHICH IS CONCERNING FOR RUPTURED ECTOPIC. Assessment & Plan - Diagnosis (1) Ruptured ectopic Is this a current diagnosis for this admission?: Yes - Time Time Spent with patient: Less than 15 minutes Medications reviewed and adjusted accordingly: Yes Anticipated discharge: Home Within: within 48 hours - Will continue routine post-op care
[2017-07-07] MEDS: MORPHINE SULFATE 10 MG/ML INJ IV PRN ×4 (11:00→21:04)
[2017-07-07] MEDS: FAMOTIDINE 20 MG TABLET PO PRN (15:02)
[2017-07-08] MEDS: MORPHINE SULFATE 10 MG/ML INJ IV PRN ×4 (00:08→08:20)
[2017-07-08] MEDS: OXYCODONE-ACETAMINOPHEN 5-325 MG TABLET PO PRN ×4 (06:04→20:32)
[2017-07-08] MEDS: DOCUSATE SODIUM 100 MG CAPSULE PO SCH ×2 (09:34→21:13)
[2017-07-08] MEDS: SIMETHICONE 80 MG TAB.CHEW PO SCH ×2 (13:27→21:13)
[2017-07-08] MEDS: HYDROMORPHONE HCL 2 MG TABLET PO PRN ×2 (13:27→18:23)
[2017-07-08] MEDS: ONDANSETRON 4 MG TAB.RAPDIS PO PRN (19:24)
[2017-07-08 21:12] LABS: HEMATOCRIT 30.8 % (36.0-47.0); HEMOGLOBIN 10.9 g/dL (12.0-15.5); HGB HCT DIFFERENCE 1.9; MEAN CORPUSCULAR HEMOGLOBIN 32.5 pg (27.0-33.4); MEAN CORPUSCULAR HGB CONC 35.4 g/dL (32.0-36.0); MEAN CORPUSCULAR VOLUME 92 fl (80-97); RED BLOOD COUNT 3.36 10^6/uL (3.72-5.28); RED CELL DISTRIBUTION WIDTH 14.7 % (11.5-14.0); WHITE BLOOD COUNT 14.4 10^3/uL (4.0-10.5)
[2017-07-08] MEDS: HYDROMORPHONE HCL INJ/PF 2 MG/ML AMPULE IV PRN (21:13)
[2017-07-08] MEDS ORDERED: GLUCAGON,HUMAN RECOMB 1 MG INJ SUBCUT PRN (21:44)
[2017-07-08] MEDS ORDERED: DEXTROSE 40% GEL 15 GM TUBE PO PRN ×2 (21:44)
[2017-07-08] MEDS ORDERED: DEXTROSE 50%-WATER 25 GM/50 ML DISP.SYRIN IV PRN ×2 (21:44)
[2017-07-08] MEDS: RINGERS SOLUTION,LACTATED 1,000 ML IV PRN (21:55)
--- NOTE | 2017-07-08 22:23 | RADIOLOGY REPORT (SQ) ---
EXAM DESCRIPTION: KUB/ABDOMEN (SINGLE VIEW) COMPLETED DATE/TIME: 07/08/2017 10:12 pm REASON FOR STUDY: possible illeus COMPARISON: None. NUMBER OF VIEWS: One view. TECHNIQUE: Supine radiographic image of the abdomen acquired. LIMITATIONS: None. FINDINGS: BOWEL GAS PATTERN: Dilated small bowel loops in the mid abdomen. Paucity of gas in the co khushbu. CALCIFICATIONS: No suspicious calcifications. SOFT TISSUES: No gross mass or suggestion of organomegaly. HARDWARE: Drainage catheter overlies the pelvis. BONES: No acute fracture. No worrisome bone lesions. OTHER: No other significant finding. IMPRESSION: Suspicious for small bowel obstruction. TECHNICAL DOCUMENTATION: JOB ID: [id number] [employer]- All Rights Reserved
[2017-07-09] MEDS: HYDROMORPHONE HCL INJ/PF 2 MG/ML AMPULE IV PRN ×7 (00:15→23:50)
--- NOTE | 2017-07-09 00:16 | PDOC CONSULTATION ---
Consultation Consult Date: 07/09/17 Attending physician:: TR LEON Consult reason:: Abdominal pain History of Present Illness Admission Date/PCP: 07/07/17 02:47 Patient complains of: Abdominal pain History of Present Illness: CYNTHIA CASTILLO is a 31 year old female brought to the hospital for debilitating pain on 07/06/17 from a known ectopic . She had left AMA/ refusing treatment within the prior 2 weeks. She underwent attempted resection laparoscopically and was converted to laparotomy with general surgery intraoperative consult, Dr Garcia. Partial resection of her omentum was performed along with removal of the ectopic with placement of a HOSSEIN drain to the LLQ. Since surgery she has had a postoperative ileus with LLQ abdominal pain along with left lower back pain corresponding with HOSSEIN drain site. Currently with episodic nausea, denies flattus, denies any fever, chest pain, shortness of breath, headache, dizziness or loss of consciousness. Past Medical History Pulmonary Medical History: Reports: Asthma - athletic Renal/ Medical History: Reports: Other - Ectopic Hematology: Reports: Sickle Cell Disease - Trait only Past Surgical History Past Surgical History: Reports: Section, Other - Right Salpingectomy, Left salpingectomy, partial omentectomy Social History Information Source: Patient Lives with: Spouse/Significant other Smoking Status: Current Every Day Smoker Cigarettes Packs Per Day: 0.1 Cigars Per Day: 3 Frequency of Alcohol Use: None Hx Recreational Drug Use: No Drugs: Marijuana - occasional Hx Prescription Drug Abuse: No - Advance Directive Resuscitation Status: Full Code Family History Family History: Reviewed & Not Pertinent Parental Family History Reviewed: Yes Children Family History Reviewed: Yes Sibling(s) Family History Reviewed.: Yes Medication/Allergy Home Medications: No Home Medications 06/28/17 Allergies/Adverse Reactions: No Known Allergies Allergy (Verified 06/28/17 11:03) Review of Systems Constitutional: ABSENT: fatigue, fever(s), headache(s), night sweats, weakness Nose, Mouth, and Throat: ABSENT: mouth pain, sore throat Cardiovascular: ABSENT: dyspnea on exertion, orthropnea, palpitations Respiratory: ABSENT: cough, hemoptysis Gastrointestinal: PRESENT: abdominal pain, bloating, constipation, nausea. ABSENT: diarrhea, vomiting Musculoskeletal: PRESENT: back pain - after surgery Neurological: ABSENT: confusion, convulsions, numbness, paresthesias, vertigo, weakness Physical Exam Vital Signs: Temp Pulse Resp BP Pulse Ox 99.1 F 85 18 124/74 100 07/08/17 19:19 07/08/17 19:19 07/08/17 19:19 07/08/17 19:19 07/08/17 20:00 Pulse Oximeter Continuous Start: 07/08/17 19: 01 Freq: RTQ4 Status: Active Document 07/08/17 20:00 [facility] (Rec: 07/08/17 22:27 [facility] [email or web address]) Pulse Oximetry Assessment Oxygen Saturation (92-100) 100 Oxygen Delivery Method Room Air Fraction of Inspired Oxygen (FIO2) 21 Equipment Usage Initial Set Up Continuous Pulse Oximeter 24 Hour Charge Charge Now Continuous SpO2 Machine # N Intake & Output 07/07/17 07/08/17 07/09/17 06:59 06:59 06:59 Intake Total 0 2400 1272 Output Total 610 2513 3320 Balance -610 -3009 -8898 Weight 60.7 kg General appearance: PRESENT: no acute distress, well-developed Head exam: PRESENT: atraumatic, normocephalic Eye exam: PRESENT: conjunctiva pink. ABSENT: conjunctiva pale Mouth exam: PRESENT: moist, neck supple Neck exam: ABSENT: lymphadenopathy, tenderness, thyromegaly, tracheal deviation Respiratory exam: PRESENT: symmetrical, unlabored. ABSENT: tachypnea Vascular exam: PRESENT: normal capillary refill GI/Abdominal exam: PRESENT: guarding - focal, soft, tenderness - focal to HOSSEIN site. ABSENT: distended, firm, hernia Extremities exam: ABSENT: calf tenderness, pedal edema, tenderness Neurological exam: PRESENT: alert, awake, oriented to person, oriented to place , oriented to time, CN II-XII grossly intact Psychiatric exam: ABSENT: agitated, anxious Results Laboratory Results: 07/08/17 21:05 07/08/17 21:05 WBC 14.4 H RBC 3.36 L Hgb 10.9 L Hct 30.8 L MCV 92 MCH 32.5 MCHC 35.4 RDW 14.7 H Plt Count 211 Impressions: Obstetrics Ultrasound 07/06/17 19:42 IMPRESSION: NO INTRAUTERINE . COMPLEX HETEROGENOUS AREA ADJACENT TO THE LEFT OVARY WITH INCREASED VASCULARITY CONCERNING FOR ECTOPIC. THERE IS ALSO FREE FLUID WHICH IS CONCERNING FOR RUPTURED ECTOPIC. KUB X-Ray 07/08/17 00:00 IMPRESSION: Suspicious for small bowel obstruction. Assessment & Plan - Diagnosis (1) Acute abdomen Is this a current diagnosis for this admission?: Yes Plan: Expanding pain control to toradol 15mg IV q6 Counseled patient on ambulation and use of incentive spirometer DVT/GI prophylaxis Awaiting bowel function, encourage ambulation, continue oral bowel regimen (2) Ileus following gastrointestinal surgery Is this a current diagnosis for this admission?: No Plan: Ambulate TID, oob to chair NPO, Await return of bowel function prior to diet
[2017-07-09] MEDS ORDERED: KETOROLAC TROMETHAMINE INJ/PF 30 MG/1 ML SDV IV SCH (00:45)
[2017-07-09] MEDS ORDERED: KETOROLAC TROMETHAMINE INJ/PF 30 MG/1 ML SDV IV ONE (01:00)
[2017-07-09] MEDS: SIMETHICONE 80 MG TAB.CHEW PO SCH ×3 (06:12→21:09)
[2017-07-09] MEDS: KETOROLAC TROMETHAMINE INJ/PF 30 MG/1 ML SDV IV SCH ×4 (06:12→23:51)
--- NOTE | 2017-07-09 08:04 | PDOC PROGRESS REPORT ---
Subjective Progress Note for:: 07/08/17 Subjective:: seen at 0730 and this pm. care advanced today as she has had no nausea and is hydrating well. Will try to slowly advance diet. Physical Exam - Physical Exam Vital Signs: Temp Pulse Resp BP Pulse Ox 98.7 F 89 20 114/64 100 07/08/17 16:53 07/08/17 16:53 07/08/17 16:53 07/08/17 16:53 07/08/17 16:53 Intake & Output 07/07/17 07/08/17 07/09/17 06:59 06:59 06:59 Intake Total 0 2400 125 Output Total 610 4790 Balance -610 -2390 125 Weight 60.7 kg General appearance: PRESENT: no acute distress, well-developed, well-nourished Respiratory exam: PRESENT: clear to auscultation camelia, symmetrical, unlabored Cardiovascular exam: PRESENT: RRR, +S1, +S2 GI/Abdominal exam: PRESENT: guarding, normal bowel sounds, tenderness - around LLQ Drain and incision. ABSENT: distended, rebound, rigid Extremities exam: PRESENT: full ROM. ABSENT: calf tenderness, clubbing, pedal edema Neurological exam: PRESENT: alert, awake, oriented to person, oriented to place , oriented to time, oriented to situation, CN II-XII grossly intact. ABSENT: motor sensory deficit Psychiatric exam: PRESENT: appropriate affect, normal mood. ABSENT: homicidal ideation, suicidal ideation Skin exam: PRESENT: dry, intact, warm. ABSENT: cyanosis, rash Result Laboratory Results: 07/07/17 05:58 Impressions: Obstetrics Ultrasound 07/06/17 19:42 IMPRESSION: NO INTRAUTERINE . COMPLEX HETEROGENOUS AREA ADJACENT TO THE LEFT OVARY WITH INCREASED VASCULARITY CONCERNING FOR ECTOPIC. THERE IS ALSO FREE FLUID WHICH IS CONCERNING FOR RUPTURED ECTOPIC. Assessment & Plan - Diagnosis (1) Ectopic without intrauterine Qualifiers: Location of ectopic : unspecified location Qualified Code(s): O00.90 - Unspecified ectopic without intrauterine Is this a current diagnosis for this admission?: Yes Plan: S/p L/S and Ex Lap with Right salpingo-ophorectomy and Omental resection. Will try to slowly advance care. IV breathrough pain meds changed to po Dilaudid 2mg q 4 hours. Pt encouraged to ambulate. Continue SCDs. Motrin/Toradol held for now due to significant bleeding intraoperatively - Will reasses as needed. Bowel sounds present and pt hydrating and tolerating clear liquid diet. She denies nausea. Will advance diet slowly. Continue Incentive spirometer. - Time Time Spent with patient: 25-34 minutes Critical Time spent with patient: Less than 15 minutes Smoking Cessation Education: 3 to 10 minutes Medications reviewed and adjusted accordingly: Yes Anticipated discharge: Home Within: within 48 hours - Inpatient Certification Based on my medical assessment, after consideration of the patient's comorbidities, presenting symptoms, or acuity I expect that the services needed warrant INPATIENT care.: Yes I certify that my determination is in accordance with my understanding of Medicare's requirements for reasonable and necessary INPATIENT services [42 CFR 412.3e].: Yes Medical Necessity: Failure to Improve With Outpatient Therapy, Need Close Monitoring Due to Risk of Patient Decompensation, Need For IV Fluids, Need for Pain Control 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
--- NOTE | 2017-07-09 08:11 | PDOC PROGRESS REPORT ---
Subjective Subjective:: seen at 0730 and this pm. care advanced yesterday - pt reports she had a few fruit and had intermittent nausea. She ambulated last pm and apparently had increased pain with increased output from drain. Plan was to remove pressure dressing today - reviewed with patient yesterday. PO breakthrough pain meds discontinued and changed to IV after increased pain after ambulation yesterday. Pt continues to deny emesis. Physical Exam - Physical Exam Vital Signs: Temp Pulse Resp BP Pulse Ox 98.6 F 80 18 107/69 100 07/09/17 04:20 07/09/17 04:20 07/09/17 04:20 07/09/17 04:20 07/09/17 07:36 Pulse Oximeter Continuous Start: 07/08/17 19: 01 Freq: RTQ4 Status: Active Document 07/09/17 07:36 [facility] (Rec: 07/09/17 07:37 [facility] [email or web address]) Pulse Oximetry Assessment Oxygen Saturation (92-100) 100 Oxygen Delivery Method Room Air Fraction of Inspired Oxygen (FIO2) 21 Equipment Usage Equipment in Use Continuous SpO2 Machine # [id number] Intake & Output 07/08/17 07/09/17 07/10/17 06:59 06:59 06:59 Intake Total 2402021 Output Total 4789 4095 Balance -2390 -2072 Weight 60.7 kg General appearance: PRESENT: no acute distress, well-developed, well-nourished Head exam: PRESENT: atraumatic, normocephalic Respiratory exam: PRESENT: clear to auscultation camelia, symmetrical, unlabored Cardiovascular exam: PRESENT: RRR, +S1, +S2 GI/Abdominal exam: PRESENT: guarding, hypoactive bowel sounds - normla to hypoactive bowel sounds, soft, tenderness - LLQ around drain and incision, other - dressing removed last night per pt. incision c/d/i and drain c/d/i but was not to suction - drain placed to suction with increased output of ss fluid. ABSENT: distended, mass, organolmegaly, rebound Rectal exam: PRESENT: deferred Extremities exam: PRESENT: full ROM. ABSENT: calf tenderness, clubbing, pedal edema Neurological exam: PRESENT: alert, awake, oriented to person, oriented to place , oriented to time, oriented to situation, CN II-XII grossly intact. ABSENT: motor sensory deficit Psychiatric exam: PRESENT: appropriate affect, normal mood. ABSENT: homicidal ideation, suicidal ideation Skin exam: PRESENT: dry, intact, warm. ABSENT: cyanosis, rash Result Laboratory Results: 07/08/17 21:05 07/08/17 21:05 WBC 14.4 H RBC 3.36 L Hgb 10.9 L Hct 30.8 L MCV 92 MCH 32.5 MCHC 35.4 RDW 14.7 H Plt Count 211 Impressions: Obstetrics Ultrasound 07/06/17 19:42 IMPRESSION: NO INTRAUTERINE . COMPLEX HETEROGENOUS AREA ADJACENT TO THE LEFT OVARY WITH INCREASED VASCULARITY CONCERNING FOR ECTOPIC. THERE IS ALSO FREE FLUID WHICH IS CONCERNING FOR RUPTURED ECTOPIC. KUB X-Ray 07/08/17 00:00 IMPRESSION: Suspicious for small bowel obstruction. Assessment & Plan - Diagnosis (1) Ectopic without intrauterine Qualifiers: Location of ectopic : unspecified location Qualified Code(s): O00.90 - Unspecified ectopic without intrauterine Is this a current diagnosis for this admission?: Yes Plan: S/p L/S and Ex Lap with Right salpingo-ophorectomy and Omental resection. NPO due to concern for partial SBO. IV breathrough pain meds now to replace po Dilaudid. Pt encouraged to ambulate. Continue SCDs. Motrin/Toradol held for now due to significant bleeding intraoperatively - restarted by general surgery which is ok at this point since drain is putting out serosanguinous fluid instead of bloody fluid noted on 1st two days. Bowel sounds present but partial SBO noted on KUB. General Surgery consult done. She denies nausea currently and continues to deny emesis. Continue Incentive spirometer. REasses advance of diet as bowel function returns - Time Time Spent with patient: 15-24 minutes Smoking Cessation Education: 3 to 10 minutes Medications reviewed and adjusted accordingly: Yes Anticipated discharge: Home Within: within 72 hours - Inpatient Certification Based on my medical assessment, after consideration of the patient's comorbidities, presenting symptoms, or acuity I expect that the services needed warrant INPATIENT care.: Yes I certify that my determination is in accordance with my understanding of Medicare's requirements for reasonable and necessary INPATIENT services [42 CFR 412.3e].: Yes Medical Necessity: Need Close Monitoring Due to Risk of Patient Decompensation, Need for Pain Control Post Hospital Care: D/C Exercise Physiologist Certified Documentation
[2017-07-09] MEDS: DOCUSATE SODIUM 100 MG CAPSULE PO SCH ×2 (10:12→21:10)
[2017-07-09] MEDS: OXYCODONE-ACETAMINOPHEN 5-325 MG TABLET PO PRN ×3 (11:25→21:10)
--- NOTE | 2017-07-09 12:22 | PROGRESS NOTE E ---
Progress Note NAME: CYNTHIA CASTILLO : 1985 AGE: 31Y DATE: 07/09/2017 ROOM: 209 SUBJECTIVE: Patient this morning feels better. The pains appear to have subsided. Denies any flatus but has been burping quite a bit. OBJECTIVE: Abdomen is soft with mild diffuse tenderness. HOSSEIN drain still draining serosanguineous fluid. IMPRESSION: ILEUS, POSTOP. PLAN: 1. Continue with ice chips today and gradually increase to full liquids in the morning. 2. Continue with ambulation and hydration. DICTATING PHYSICIAN: BIBI TALAVERA M.D. [id number] PHY#: [id number] ID: [id number] JOB#: [id number] ACCT: [id number] cc: >
[2017-07-09] MEDS: RINGERS SOLUTION,LACTATED 1,000 ML IV PRN (23:59)
[2017-07-10] MEDS: HYDROMORPHONE HCL INJ/PF 2 MG/ML AMPULE IV PRN ×3 (03:42→12:26)
[2017-07-10] MEDS: KETOROLAC TROMETHAMINE INJ/PF 30 MG/1 ML SDV IV SCH ×3 (05:32→17:08)
[2017-07-10] MEDS: OXYCODONE-ACETAMINOPHEN 5-325 MG TABLET PO PRN ×3 (05:33→15:36)
[2017-07-10] MEDS: SIMETHICONE 80 MG TAB.CHEW PO SCH ×2 (05:33→13:41)
[2017-07-10 06:43] LABS: ABSOLUTE EOSINOPHILS # (AUTO) 0.2 10^3/uL (0.0-0.6); ABSOLUTE LYMPHOCYTES (AUTO) 1.3 10^3/uL (0.5-4.7); ABSOLUTE MONOCYTES (AUTO) 0.4 10^3/uL (0.1-1.4); ABSOLUTE NEUT (AUTO) 4.6 10^3/uL (1.7-8.2); BASOPHILS % (AUTO) 0.5 % (0-2); EOSINOPHILS % (AUTO) 2.8 % (0-6); HEMATOCRIT 23.1 % (36.0-47.0); HGB HCT DIFFERENCE 1.8; LYMPHOCYTES % (AUTO) 20.4 % (13-45); MEAN CORPUSCULAR HGB CONC 35.8 g/dL (32.0-36.0); MEAN CORPUSCULAR VOLUME 92 fl (80-97); MONOCYTES % (AUTO) 6.3 % (3-13); RED CELL DISTRIBUTION WIDTH 14.3 % (11.5-14.0); WHITE BLOOD COUNT 6.5 10^3/uL (4.0-10.5)
[2017-07-10 06:44] LABS: HEMOGLOBIN 8.3 g/dL (12.0-15.5)
[2017-07-10] MEDS: DOCUSATE SODIUM 100 MG CAPSULE PO SCH (08:01)
--- NOTE | 2017-07-10 09:16 | PDOC PROGRESS REPORT ---
Subjective Progress Note for:: 07/10/17 Subjective:: Status post taking some clear liquids patient feels nauseous. Patient still has abdominal distention and is not passing any flatus. Physical Exam Vital Signs: Temp Pulse Resp BP Pulse Ox 98.3 F 86 16 119/67 100 07/10/17 08:34 07/10/17 08:34 07/10/17 08:34 07/10/17 08:34 07/10/17 08:34 Pulse Oximeter Continuous Start: 07/08/17 19: 01 Freq: RTQ4 Status: Complete Document 07/09/17 07:36 [facility] (Rec: 07/09/17 07:37 [facility] [email or web address]) Pulse Oximetry Assessment Oxygen Saturation (92-100) 100 Oxygen Delivery Method Room Air Fraction of Inspired Oxygen (FIO2) 21 Equipment Usage Equipment in Use Continuous SpO2 Machine # [id number] Intake & Output 07/09/17 07/10/17 07/11/17 06:59 06:59 06:59 Intake Total 2021 1140 Output Total 4095 1500 Balance -2072 -360 General appearance: PRESENT: no acute distress, cooperative Respiratory exam: PRESENT: clear to auscultation camelia Cardiovascular exam: PRESENT: RRR GI/Abdominal exam: PRESENT: other - Soft, mildly distended, mild diffuse tenderness without peritoneal signs, diminished bowel sounds Results Laboratory Results: 07/10/17 06:24 07/10/17 06:24 WBC 6.5 RBC 2.50 L Hgb 8.3 L D Hct 23.1 L MCV 92 MCH 33.0 MCHC 35.8 RDW 14.3 H Plt Count 192 Seg Neutrophils % 70.0 Lymphocytes % 20.4 Monocytes % 6.3 Eosinophils % 2.8 Basophils % 0.5 Absolute Neutrophils 4.6 Absolute Lymphocytes 1.3 Absolute Monocytes 0.4 Absolute Eosinophils 0.2 Absolute Basophils 0.0 Impressions: Obstetrics Ultrasound 07/06/17 19:42 IMPRESSION: NO INTRAUTERINE . COMPLEX HETEROGENOUS AREA ADJACENT TO THE LEFT OVARY WITH INCREASED VASCULARITY CONCERNING FOR ECTOPIC. THERE IS ALSO FREE FLUID WHICH IS CONCERNING FOR RUPTURED ECTOPIC. KUB X-Ray 07/08/17 00:00 IMPRESSION: Suspicious for small bowel obstruction. Assessment & Plan - Diagnosis (1) Postoperative ileus Is this a current diagnosis for this admission?: Yes Plan: Patient with still not good bowel function. In light of her nausea and abdominal distention will stop her clear liquids. Patient is ambulating.
[2017-07-10] MEDS ORDERED: GLUCAGON,HUMAN RECOMB 1 MG INJ SUBCUT PRN (09:17)
[2017-07-10] MEDS ORDERED: DEXTROSE 50%-WATER 25 GM/50 ML DISP.SYRIN IV PRN ×2 (09:17)
[2017-07-10] MEDS ORDERED: DEXTROSE 40% GEL 15 GM TUBE PO PRN ×2 (09:17)
--- NOTE | 2017-07-10 10:08 | PDOC PROGRESS REPORT ---
Subjective Subjective:: Pt reports good pain control, some mild nausea, no emesis, no flatus, walking halls without difficulty Physical Exam - Physical Exam Vital Signs: Temp Pulse Resp BP Pulse Ox 98.3 F 86 16 119/67 100 07/10/17 08:34 07/10/17 08:34 07/10/17 08:34 07/10/17 08:34 07/10/17 08:34 Pulse Oximeter Continuous Start: 07/08/17 19: 01 Freq: RTQ4 Status: Complete Document 07/09/17 07:36 [facility] (Rec: 07/09/17 07:37 [facility] [email or web address]) Pulse Oximetry Assessment Oxygen Saturation (92-100) 100 Oxygen Delivery Method Room Air Fraction of Inspired Oxygen (FIO2) 21 Equipment Usage Equipment in Use Continuous SpO2 Machine # [id number] Intake & Output 07/09/17 07/10/17 07/11/17 06:59 06:59 06:59 Intake Total 2021 1140 Output Total 4090 1500 Balance -2073 -360 General appearance: PRESENT: no acute distress, cooperative, well-developed - Incisions clean/dry/intact Drain with only serosquanous fluid GI/Abdominal exam: PRESENT: hypoactive bowel sounds Result Laboratory Results: 07/10/17 06:24 07/10/17 06:24 WBC 6.5 RBC 2.50 L Hgb 8.3 L D Hct 23.1 L MCV 92 MCH 33.0 MCHC 35.8 RDW 14.3 H Plt Count 192 Seg Neutrophils % 70.0 Lymphocytes % 20.4 Monocytes % 6.3 Eosinophils % 2.8 Basophils % 0.5 Absolute Neutrophils 4.6 Absolute Lymphocytes 1.3 Absolute Monocytes 0.4 Absolute Eosinophils 0.2 Absolute Basophils 0.0 Impressions: Obstetrics Ultrasound 07/06/17 19:42 IMPRESSION: NO INTRAUTERINE . COMPLEX HETEROGENOUS AREA ADJACENT TO THE LEFT OVARY WITH INCREASED VASCULARITY CONCERNING FOR ECTOPIC. THERE IS ALSO FREE FLUID WHICH IS CONCERNING FOR RUPTURED ECTOPIC. KUB X-Ray 07/08/17 00:00 IMPRESSION: Suspicious for small bowel obstruction. Assessment & Plan - Diagnosis (1) Ruptured ectopic Is this a current diagnosis for this admission?: Yes - Time Time Spent with patient: Less than 15 minutes Critical Time spent with patient: Less than 15 minutes Medications reviewed and adjusted accordingly: Yes Anticipated discharge: Home Within: within 72 hours - Per General Surgery, pt is put on bowel rest for suspected illieus
[2017-07-10] MEDS: RINGERS SOLUTION,LACTATED 1,000 ML IV PRN (13:41)
[2017-07-10] MEDS: ONDANSETRON HCL INJ/PF 4 MG/2 ML SDV IV PRN ×2 (17:07→21:23)
[2017-07-10] MEDS: FAMOTIDINE 20 MG TABLET PO PRN (20:45)
[2017-07-10] MEDS ORDERED: PROMETHAZINE HCL INJ 25 MG/1 ML VIAL IV ONE (22:30)
[2017-07-11] MEDS: KETOROLAC TROMETHAMINE INJ/PF 30 MG/1 ML SDV IV SCH ×4 (00:12→17:34)
[2017-07-11] MEDS: HYDROXYZINE PAMOATE 50 MG CAPSULE PO PRN (00:13)
[2017-07-11] MEDS: DOCUSATE SODIUM 100 MG CAPSULE PO SCH ×3 (00:28→22:22)
[2017-07-11] MEDS: SIMETHICONE 80 MG TAB.CHEW PO SCH ×4 (00:28→22:22)
[2017-07-11] MEDS: OXYCODONE-ACETAMINOPHEN 5-325 MG TABLET PO PRN ×2 (08:01→14:44)
--- NOTE | 2017-07-11 13:09 | PDOC PROGRESS REPORT ---
Subjective Progress Note for:: 07/11/17 Subjective:: feeling much better today. Had flatus yesterday per patient. last night had episode of vomiting. admits that after being made NPO by [facility] did have someone bring her [employer] and after eating that had the vomiting. has had no nausea today. Indicates that would like phenergan with her percocet to prevent vomiting. (was given a one time dose last night.) Physical Exam - Physical Exam Vital Signs: Temp Pulse Resp BP Pulse Ox 98.6 F 81 14 110/64 99 07/11/17 11:32 07/11/17 11:32 07/11/17 11:32 07/11/17 11:32 07/11/17 11:32 Pulse Oximeter Continuous Start: 07/08/17 19: 01 Freq: RTQ4 Status: Complete Document 07/09/17 07:36 [facility] (Rec: 07/09/17 07:37 [facility] [email or web address]) Pulse Oximetry Assessment Oxygen Saturation (92-100) 100 Oxygen Delivery Method Room Air Fraction of Inspired Oxygen (FIO2) 21 Equipment Usage Equipment in Use Continuous SpO2 Machine # [id number] Intake & Output 07/10/17 07/11/17 07/12/17 06:59 06:59 06:59 Intake Total 1140 1560 Output Total 1500 2440 0 Balance -360 -880 0 General appearance: PRESENT: no acute distress, cooperative GI/Abdominal exam: PRESENT: diminished bowel sounds - dressing in place and not stained., hypoactive bowel sounds, soft, tenderness - appropriate for post operative period. abdomen nondistended Result Laboratory Results: 07/10/17 06:24 Impressions: Obstetrics Ultrasound 07/06/17 19:42 IMPRESSION: NO INTRAUTERINE . COMPLEX HETEROGENOUS AREA ADJACENT TO THE LEFT OVARY WITH INCREASED VASCULARITY CONCERNING FOR ECTOPIC. THERE IS ALSO FREE FLUID WHICH IS CONCERNING FOR RUPTURED ECTOPIC. KUB X-Ray 07/08/17 00:00 IMPRESSION: Suspicious for small bowel obstruction. Assessment & Plan - Diagnosis (1) Postoperative ileus Is this a current diagnosis for this admission?: Yes (2) Ruptured ectopic Is this a current diagnosis for this admission?: Yes - Plan Summary Plan Summary: will follow with recs for clear liquids. If tolerates will advance diet. Instead of the phenergan will give Zofran ODT with percocet to prevent nausea. watch for constipation with opiod use as this can worsen the possibility of persistent ileus or obstruction. Hopefully to discharge this evening or in AM.
[2017-07-11] MEDS: ONDANSETRON 4 MG TAB.RAPDIS PO PRN (14:44)
[2017-07-11] MEDS: RINGERS SOLUTION,LACTATED 1,000 ML IV PRN (17:34)
[2017-07-12] MEDS: OXYCODONE-ACETAMINOPHEN 5-325 MG TABLET PO PRN ×4 (00:56→23:59)
[2017-07-12] MEDS: KETOROLAC TROMETHAMINE INJ/PF 30 MG/1 ML SDV IV SCH ×3 (01:01→14:44)
[2017-07-12] MEDS: DOCUSATE SODIUM 100 MG CAPSULE PO SCH ×2 (09:07→21:22)
[2017-07-12] MEDS: SIMETHICONE 80 MG TAB.CHEW PO SCH ×3 (09:10→21:22)
--- NOTE | 2017-07-12 13:40 | PDOC PROGRESS REPORT ---
Subjective Progress Note for:: 07/12/17 Subjective:: Pt with complaints of continued postoperative pain. Pt admits to passage of flatus. Pt with nausea but no further emesis. Pt denies fevers, SOB or CP. Pt states she is ready for discharge home but has not tolerated a fool meal without emesis. Physical Exam - Physical Exam Vital Signs: Temp Pulse Resp BP Pulse Ox 98.9 F 75 16 122/70 100 07/12/17 12:34 07/12/17 12:34 07/12/17 12:34 07/12/17 12:34 07/12/17 12:34 Pulse Oximeter Continuous Start: 07/08/17 19: 01 Freq: RTQ4 Status: Complete Document 07/09/17 07:36 [facility] (Rec: 07/09/17 07:37 [facility] [email or web address]) Pulse Oximetry Assessment Oxygen Saturation (92-100) 100 Oxygen Delivery Method Room Air Fraction of Inspired Oxygen (FIO2) 21 Equipment Usage Equipment in Use Continuous SpO2 Machine # [id number] Intake & Output 07/11/17 07/12/17 07/13/17 06:59 06:59 05:59 Intake Total 1560 1154 Output Total 2440 900 Balance -880 254 General appearance: PRESENT: no acute distress - but complaining about hospital care, cooperative, well-developed, well-nourished Head exam: PRESENT: atraumatic, normocephalic Neck exam: PRESENT: full ROM Respiratory exam: PRESENT: clear to auscultation camelia, symmetrical, unlabored Cardiovascular exam: PRESENT: RRR GI/Abdominal exam: PRESENT: normal bowel sounds, soft, tenderness - appropriate postop tenderness, other - incision sites are intact; removal of dression for one laparoscopic incision appears to have removed a healing eschar that promoted small bleeding, LLQ laparascopic incision with what appears small drainage but no noted induration or erythema; laparatomy incision is clean, dry and intact Extremities exam: PRESENT: full ROM Musculoskeletal exam: PRESENT: ambulatory, other - when pt is ambulatory is slightly bent at waist 2nd to post op pain, appears pt behind pain instead of ahead of it Neurological exam: PRESENT: alert, oriented to time, oriented to situation, normal gait - other than bending at a waist a little 2nd to pain Psychiatric exam: PRESENT: agitated - complaining about care in hospital, appropriate affect Focused psych exam: PRESENT: other - annoyed Skin exam: PRESENT: dry, intact, normal color, warm Result Laboratory Results: 07/10/17 06:24 Impressions: Obstetrics Ultrasound 07/06/17 19:42 IMPRESSION: NO INTRAUTERINE . COMPLEX HETEROGENOUS AREA ADJACENT TO THE LEFT OVARY WITH INCREASED VASCULARITY CONCERNING FOR ECTOPIC. THERE IS ALSO FREE FLUID WHICH IS CONCERNING FOR RUPTURED ECTOPIC. KUB X-Ray 07/08/17 00:00 IMPRESSION: Suspicious for small bowel obstruction. Assessment & Plan - Diagnosis (1) Ruptured ectopic Is this a current diagnosis for this admission?: Yes (2) Ileus following gastrointestinal surgery Is this a current diagnosis for this admission?: No Plan: Pt will have lunch to note how she tolerates a regular diet, if tolerated, pt will be discharged home with follow up in 1wk Pt has already been given discharge instructions in regards to infection precautions with wound care similar to after she had her c-sections, thrombotic precautions were also given; pt to call the office on Friday for a one week follow up appt. Pt told it was okay for her to shower Dressings removed from surgical sites - Plan Summary Plan Summary: Pt will have lunch to note how she tolerates a regular diet, if tolerated, pt will be discharged home with follow up in 1wk Pt has already been given discharge instructions in regards to infection precautions with wound care similar to after she had her c-sections, thrombotic precautions were also given; pt to call the office on Friday for a one week follow up appt. Pt told it was okay for her to shower Dressings removed from surgical sites Pt to call if she has any problems prior to her 1wk follow up appointment at [facility]
[2017-07-12] MEDS ORDERED: IBUPROFEN 800 MG TABLET ONE (13:52)
[2017-07-12] MEDS: ONDANSETRON 4 MG TAB.RAPDIS PO PRN (14:58)
[2017-07-12] MEDS ORDERED: IBUPROFEN 800 MG TABLET PO ONE (15:00)
[2017-07-12] MEDS ORDERED: METOCLOPRAMIDE HCL 10 MG TABLET PO ONE (16:00)
[2017-07-12] MEDS ORDERED: IBUPROFEN 800 MG TABLET PO SCH (18:00)
[2017-07-12 18:35] LABS: HEMATOCRIT 26.3 % (36.0-47.0); HEMOGLOBIN 9.3 g/dL (12.0-15.5); HGB HCT DIFFERENCE 1.6; MEAN CORPUSCULAR HEMOGLOBIN 32.7 pg (27.0-33.4); MEAN CORPUSCULAR HGB CONC 35.5 g/dL (32.0-36.0); MEAN CORPUSCULAR VOLUME 92 fl (80-97); RED BLOOD COUNT 2.86 10^6/uL (3.72-5.28); RED CELL DISTRIBUTION WIDTH 14.7 % (11.5-14.0); WHITE BLOOD COUNT 7.1 10^3/uL (4.0-10.5)
[2017-07-12 18:56] LABS: ALANINE AMINOTRANSFERASE 144 U/L (9-52); ALBUMIN 3.5 g/dL (3.5-5.0); ALKALINE PHOSPHATASE 57 U/L (38-126); ANION GAP 10 (5-19); ASPARTATE AMINO TRANSFERASE 121 U/L (14-36); BILIRUBIN,DIRECT 0.4 mg/dL (0.0-0.4); BILIRUBIN,TOTAL 1.1 mg/dL (0.2-1.3); BLOOD UREA NITROGEN 5 mg/dL (7-20); CALCIUM 8.5 mg/dL (8.4-10.2); CARBON DIOXIDE 31 mmol/L (22-30); CHLORIDE 100 mmol/L (98-107); CREATININE RESULT 0.54 mg/dL (0.52-1.25); GLUCOSE 103 mg/dL (75-110); MAGNESIUM 1.8 mg/dL (1.6-2.3); SODIUM 140.5 mmol/L (137-145); TOTAL PROTEIN 6.2 g/dL (6.3-8.2)
[2017-07-12 18:57] LABS: POTASSIUM 3.1 mmol/L (3.6-5.0)
--- NOTE | 2017-07-12 19:14 | RADIOLOGY REPORT (SQ) ---
EXAM DESCRIPTION: ABDOMEN 2 VIEWS COMPLETED DATE/TIME: 07/12/2017 6:07 pm REASON FOR STUDY: abdominal pain COMPARISON: 07/08/2017 NUMBER OF VIEWS: Two views. TECHNIQUE: Supine and erect/decubitus radiographic images of the abdomen acquired. LIMITATIONS: None. FINDINGS: FREE AIR: None. No abnormal gas collections. LUNG BASES: Clear. BOWEL GAS PATTERN: Re- demonstration of multiple dilated loops of small bowel demonstrating several a ir-fluid levels. Gas is seen to the level of the sigmoid colon. CALCIFICATIONS: No suspicious calcifications. SOFT TISSUES: No gross mass or suggestion of organomegaly. HARDWARE: A previously described surgical drain has been removed. BONES: No acute fracture. No worrisome bone lesions. OTHER: No other significant finding. IMPRESSION: Persistent appearance of dilated loops of small bowel with air-fluid levels noting dista l gas on today's examination, consistent with ileus. TECHNICAL DOCUMENTATION: JOB ID: [id number] [employer]- All Rights Reserved
[2017-07-12] MEDS: IBUPROFEN 800 MG TABLET PO SCH (23:27)
[2017-07-13] MEDS: SIMETHICONE 80 MG TAB.CHEW PO SCH (05:49)
[2017-07-13] MEDS: IBUPROFEN 800 MG TABLET PO SCH ×2 (05:50→11:28)
[2017-07-13] MEDS: DOCUSATE SODIUM 100 MG CAPSULE PO SCH (09:54)
[2017-07-13] MEDS: OXYCODONE-ACETAMINOPHEN 5-325 MG TABLET PO PRN (09:54)
--- NOTE | 2017-07-13 11:29 | PDOC DISCHARGE SUMMARY ---
General - Admit/Disc Date/PCP Admission Date/Primary Care Provider: 07/07/17 02:47 Discharge Date: 07/13/17 - Discharge Diagnosis (1) Postoperative ileus Is this a current diagnosis for this admission?: Yes (2) Ruptured ectopic Is this a current diagnosis for this admission?: Yes - Additional Information Resuscitation Status: Full Code Discharge Diet: As Tolerated Discharge Activity: Activity As Tolerated, No Driving - while taking narcotics, No Lifting Over 10 Pounds, No Lifting/Push/Pulling, Slowly Increase Activity, Walk Frequently Home Medications: Oxycodone HCl/Acetaminophen [Percocet 5-325 mg Tablet] 1 - 2 tab PO Q4HP PRN # 20 tablet 07/12/17 History of Present Illness History of Present Illness: CYNTHIA CASTILLO is a 31 year old female admitted for ruptured ectopic who underwent a laparoscopic salpingectomy converted to open laparotomy with partial omentectomy done by [facility] due to adhesions. Post operative course complicated by ileus that has responded to conservative management. Patient is now tolerating diet and has had a bowel movement. No vomiting since evening. spoke with Dr. Keller with who agrees for discharge home today Physical Exam - Physical Exam Vital Signs: Temp Pulse Resp BP Pulse Ox 97.9 F 74 16 116/84 100 07/13/17 04:09 07/13/17 04:09 07/13/17 04:09 07/13/17 04:09 07/13/17 04:09 Pulse Oximeter Continuous Start: 07/08/17 19: 01 Freq: RTQ4 Status: Complete Document 07/09/17 07:36 [facility] (Rec: 07/09/17 07:37 [facility] [email or web address]) Pulse Oximetry Assessment Oxygen Saturation (92-100) 100 Oxygen Delivery Method Room Air Fraction of Inspired Oxygen (FIO2) 21 Equipment Usage Equipment in Use Continuous SpO2 Machine # [id number] Intake & Output 07/12/17 07/13/17 07/14/17 07:59 06:59 06:59 Intake Total Output Total Balance General appearance: PRESENT: no acute distress, cooperative GI/Abdominal exam: PRESENT: normal bowel sounds, soft, tenderness - appropriate for post operative course. Result Laboratory Results: 07/12/17 18:05 07/12/17 18:05 07/12/17 07/12/17 18:05 18:05 WBC 7.1 RBC 2.86 L Hgb 9.3 L Hct 26.3 L MCV 92 MCH 32.7 MCHC 35.5 RDW 14.7 H Plt Count 306 Sodium 140.5 Potassium 3.1 L Chloride 100 Carbon Dioxide 31 H Anion Gap 10 BUN 5 L Creatinine 0.54 Est GFR ( Amer) > 60 Est GFR (Non-Af Amer) > 60 Glucose 103 Calcium 8.5 Magnesium 1.8 Total Bilirubin 1.1 AST 121 H ALT 144 H Alkaline Phosphatase 57 Total Protein 6.2 L Albumin 3.5 Impressions: Obstetrics Ultrasound 07/06/17 19:42 IMPRESSION: NO INTRAUTERINE . COMPLEX HETEROGENOUS AREA ADJACENT TO THE LEFT OVARY WITH INCREASED VASCULARITY CONCERNING FOR ECTOPIC. THERE IS ALSO FREE FLUID WHICH IS CONCERNING FOR RUPTURED ECTOPIC. KUB X-Ray 07/08/17 00:00 IMPRESSION: Suspicious for small bowel obstruction. Abdomen X-Ray 07/12/17 00:00 IMPRESSION: Persistent appearance of dilated loops of small bowel with air- fluid levels noting distal gas on today's examination, consistent with ileus. Plan Discharge Plan: will discharge home and have follow up with Dr. Packer in office at [facility] within the week. Time Spent: Less than 30 Minutes
[2017-07-13 12:53] VITALS: BP 125/72
--- NOTE | 2017-07-29 05:15 | Operative Report ---
Operative Report DATE OF SURGERY: 07/07/17 PREOPERATIVE DIAGNOSIS: Ruptured Ectopic POSTOPERATIVE DIAGNOSIS: Ruptured Ectopic in Left Fallopian tube, Pelvic Adhesive Disease, Rush Graham George Syndrome OPERATION: Operative Laparoscopy with DILAN, Left Salpingectomy, Exploratory Laparotomy with Omentectomy and placement of Quang Drain. SURGEON: TAMIKO GERARD 1ST CLOTH CUTTING INSPECTOR: TRAVON MARMOLEJO ANESTHESIA: GA TISSUE REMOVED OR ALTERED: left fallopian tube, ectopic , Omentum COMPLICATIONS: Exploratory Laparotomy ESTIMATED BLOOD LOSS: 1200ml INTRAOPERATIVE FINDINGS: 400ml of Hemoperitoneum, Omental adhesions encasing ectopic . Omental bleeding required exploratory laparotomy and Intraoperative Consult with Dr. Marmolejo. Severely distended left fallopian tube with blunted fimbriae and hemorrhage extending from distal end of fallopian tube. IVF 5L, UOP 600ml, EBL 800ml and Hemoperitoneum 400ml. Total EBL 1200ml, 2 units of PRBCs, 2 Grams of Ancef preop and 2 Grams Ancef redosed at conlusion of procedure. PROCEDURE: Anesthesiologist: Orquidea WEI Estimated blood loss: [400ml Hemoperitoneum, 800ml EBL] IV fluids: [5000ml] Urine output: [800ml] Indications: [31yo withh/o Right Salpingectomy for Ectopic in Mid April in [place] presents with worsening left adnexal pain and known positive test. She was seen and evaluation in our ER on 06/28. Adnexal mass with BHCG of 9615 noted on 06/[address] Gerardo saw and evaluated the patient and recommended Operative Laparoscopy for ectopic . The patient however refused and reported to [facility] where she reportedly was given MTX on Sunday 07/01. She presents today with known ectopic in left adnexa with sudden onset of debilitating pain 06/17 and noted hemoperitoneum on Pelvic Ultrasound and BHCG now [id number]. Extensive discussion was had with the patient who again initialy refused intervention. Reviewed with patient life threatening condition and need for urgent treatment. She agreed to proceed with recommended procedure and is aware that will likely necessitate removal of left fallopian tube. The risks, benefits, alternatives were reviewed with the patient and she desires to proceed with procedure.] Procedure: The patient was taken to the operating room where general anesthesia was obtained without difficulty. The patient was then examined under anesthesia with findings as noted above with a small anteverted uterus and left adnexal mass. She was then placed in dorsal supine lithotomy position and prepped and draped in the normal sterile fashion. Minot speculum was then placed in the patient's vagina and the anterior lip of the cervix grasped with a single-tooth tenaculum. A [employer] uterine manipulator was then advanced into the uterus to provide a means of manipulation of the uterus. The speculum and tenaculum were then removed from the patient's cervix and vagina. Attention was then turned to the patient's abdomen where a 5 mm infraumbilical skin incision was then made. The Optiview trocar with 0 laparoscope was then advanced without difficulty under direct visualization with the Optiview trocar. This was performed while tenting the abdominal wall and these will fashion. Intraperitoneal placement was confirmed by the direct visualization. Pneumoperitoneum was then obtained with approximately 4 L carbon dioxide gas. Survey of the patient's abdomen and pelvis revealed findings as noted above. A second skin incision was then made approximately 3 cm superior 4 cm medial to the anterior superior iliac spine on the left and then a third skin incision was made approximately 3 cm superior to the lower incision. These incisions were made under direct visualization with the laparoscope. The second and third trochars were then advanced under direct visualization of the laparoscope at the sites. A fourth trocar was then placed on the patients right to mirror the upper trocar on the left. Upon entry into the abdomen and survey of the pelvic hemoperitneum was noted to be severe with blood extending to liver and spleen and completely obscuring pelvic organs. The hemoperitoneum was then evacuated and survey of the pelvis was performed. The left fallopian tube was readily evident to be the location of the ectopic with active hemorrhage from the mesosalpinx and distal fallopian tube. The ectopic appeared to have partially extruded and become adherant to the omentum which was encasing it completely. Lysis of adhesions were performed and the omentum was carefully dissected with the cautery away from the ectopic. The Ligasure was then used to remove the entire left fallopian tube extending to the cornu. Good hemostasis acheived at the operative site. However, continued survey of the abdomen and pelvis revealed continued hemorrhage from site unknown. THe site where ectopic dissected from the omentum appeared hemostatic but since unable to adequately assess and stop hemorrhage decision was made to abandom laparoscopy and proceed with exploratory laparotomy. General surgeon was called for assistance. Pfannensteil incision was made and carried to through the underlying layers of the fascia in the usual fashion and sharp entry into the perintoneal cavity was achieved. Survey of operative site and removal of left fallopian tube was noted to be hemostatic escept for small area of bleeding on left ovary which was cauterized and then figure of eight suture caused cessation of bleeding. However, hemorrhage was still noted with unknown source. Dr. Marmolejo proceeded to run the bowel and omentum with notation of normal bowel. However, additional sites of ectopic attachment to the omentum were noted with hemorrhage at these sites. Multiple omentectomies were performed. After this hemostasis was achieved and quang drain placed to exit lower left trocar site. The fascia at the pfannensteil site was closed in usual fashion with 0-vicryl in running fashion and then the skin was closed with 3-0 monocryl in running subcuticular fashion. Dermabond was then used to close the trocar sites and overlying the pfannensteil incision. Appreciate Dr. Marmolejo assistance with the care of this patient. All operative sites were visualized and noted to be hemostatic prior to closure. After completion of skin closure of the trocar sites attention was then turned to the vagina where the Hulka uterine manipulator was removed and the bivalve speculum was replaced. Silver nitrate was applied to the tenaculum sites for hemostasis and the speculum was removed. Sponge lap needle and instrument counts were correct 3. The patient tolerated the procedure well and was taken to the recovery area awake and in stable condition. 2 units of PRBCs were given intraoperatively. 2 grams of Ancef were given preoperatively and then redosed postoperatively.
== END 2017-07-13 14:06 | disposition home or self-care (01) | DRG 777 ==
LOC: ER 19:26 → OBSVTOIN 20:15 → INTOOBSV 20:15 → EH 20:15 → UNDOADMOB 20:15 → 2N 07-07 02:40 → EH 07-07 02:40 → OBSVTOIN 07-07 02:47 → 2N 07-07 02:47 → EH 07-07 02:47
PROVIDERS: ADMIT Student in an Organized Health Care Education/Training Program; ATTEND Student in an Organized Health Care Education/Training Program
PROC: 0W3J4ZZ Control Bleeding in Pelvic Cavity, Percutaneous Endoscopic Approach (ICD-10-PCS; principal; 2017-07-07)
PROC: 0DTU4ZZ Resection of Omentum, Percutaneous Endoscopic Approach (ICD-10-PCS; 2017-07-07)
PROC: 0UB64ZZ Excision of Left Fallopian Tube, Percutaneous Endoscopic Approach (ICD-10-PCS; 2017-07-07)
PROC: 10T24ZZ Resection of Products of Conception, Ectopic, Percutaneous Endoscopic Approach (ICD-10-PCS; 2017-07-07)
PROC: 30233N1 Transfusion of Nonautologous Red Blood Cells into Peripheral Vein, Percutaneous Approach (ICD-10-PCS; 2017-07-07)
DX: O00.102 Left tubal pregnancy without intrauterine pregnancy (principal); N99.820 Postprocedural hemorrhage of a genitourinary system organ or structure following a genitourinary system procedure; O99.63 Diseases of the digestive system complicating the puerperium; D57.3 Sickle-cell trait; J45.909 Unspecified asthma, uncomplicated; O90.81 Anemia of the puerperium; F17.210 Nicotine dependence, cigarettes, uncomplicated; Z90.79 Acquired absence of other genital organ(s); Z28.21 Immunization not carried out because of patient refusal
CPT/HCPCS: 36415; 36430; 74000; 74020; 76817; 80053; 83735; 840; 84702; 85025; 85027; 86850; 86900; 86901; 86920; 87491; 87591; 88305; 94762; 99291; C1765; J0131; J0330; J0690; J1170; J1885; J2060; J2250; J2270; J2405; J2550; J2704; J3010; J3490; J7030; J7120; P9016; S0119

== ENCOUNTER → 2018-03-03 | Outpatient (CLI) | payer MEDICAID | LOC: OD 13:10 | PROVIDERS: ATTEND Physician Assistant | DX: L85.3 Xerosis cutis (principal); L70.8 Other acne | CPT/HCPCS: 36415; 84132 ==

== ENCOUNTER 2018-04-02 19:35 | Emergency (ER) | payer MEDICAID ==
--- NOTE | 2018-04-02 21:08 | ER Document Report ---
ED GI/ - General Chief Complaint: Abdominal Pain Stated Complaint: ABDOMINAL PAIN Time Seen by Provider: 04/02/18 21:02 Notes: The patient is a 32-year-old female, past medical history left salpingo- oophrectomy, presents with increasing dysuria, small amount hematuria after wiping and left flank pain. She is also having some nausea. she has had kidney infections in the past and feels similar to that. She denies vaginal discharge , fevers, diarrhea, constipation, back pain, chest pain or headache. TRAVEL OUTSIDE OF THE [place] IN LAST 30 DAYS: No - Related Data Allergies/Adverse Reactions: No Known Allergies Allergy (Verified 06/28/17 11:03) Past Medical History - General Information source: Patient - Social History Smoking Status: Unknown if Ever Smoked Family History: Reviewed & Not Pertinent Pulmonary Medical History: Reports: Hx Asthma - athletic Renal/ Medical History: Denies: Hx Peritoneal Dialysis Psychiatric Medical History: Reports: Hx Anxiety Past Surgical History: Reports: Hx Section, Hx Gynecologic Surgery - Right tube removed due to rupture ectopic, Hx Oral Surgery, Other - Right Salpingectomy, Left salpingectomy, partial omentectomy - Immunizations Hx Diphtheria, Pertussis, Tetanus Vaccination: No Review of Systems - Review of Systems Notes: REVIEW OF SYSTEMS: CONSTITUTIONAL: -fevers, -chills EENT: -eye pain, -difficulty swallowing, -nasal congestion CARDIOVASCULAR: -chest pain, -syncope. RESPIRATORY: -cough, -SOB GASTROINTESTINAL: +LLQ abdominal pain, +nausea, +vomiting, -diarrhea GENITOURINARY: +dysuria, +hematuria MUSCULOSKELETAL: +left flank pain, -neck pain SKIN: -rash or skin lesions. HEMATOLOGIC: -easy bruising or bleeding. LYMPHATIC: -swollen, enlarged glands. NEUROLOGICAL: -altered mental status or loss of consciousness, -headache, - neurologic symptoms PSYCHIATRIC: -anxiety, -depression. ALL OTHER SYSTEMS REVIEWED AND NEGATIVE. Physical Exam - Vital signs Vitals: Temp Pulse Resp BP Pulse Ox 97.3 F 106 H 18 109/79 100 04/02/18 19:43 04/02/18 19:43 04/02/18 19:43 04/02/18 19:43 04/02/18 19:43 - Notes Notes: PHYSICAL EXAMINATION: GENERAL: Well-appearing, well-nourished and in no acute distress. HEAD: Atraumatic, normocephalic. EYES: Pupils equal round and reactive to light, extraocular movements intact, sclera anicteric, conjunctiva are normal. ENT: nares patent, oropharynx clear without exudates. Moist mucous membranes. NECK: Normal range of motion, supple without lymphadenopathy LUNGS: Breath sounds clear to auscultation bilaterally and equal. No wheezes rales or rhonchi. HEART: Mild tachycardia, regular rhythm. ABDOMEN: Soft, mild suprapubic tenderness, normoactive bowel sounds. No guarding, no rebound. No masses appreciated. BACK: Left CVA tenderness. EXTREMITIES: Normal range of motion, no pitting or edema. No cyanosis. NEUROLOGICAL: Cranial nerves grossly intact. Normal speech, normal gait. Normal sensory and motor exams. PSYCH: Normal mood, normal affect. SKIN: Warm, Dry, normal turgor, no rashes or lesions noted. Course - Re-evaluation Re-evalutation: Patient with signs and symptoms of mild left pyelonephritis. Her urinalysis is consistent with this diagnosis. She is not and she does not appear to have renal colic at this time. She appears well enough for outpatient management of her pyelonephritis with very strict return precautions. She understands. - Vital Signs Vital signs: Temp Pulse Resp BP Pulse Ox 97.3 F 106 H 18 109/79 100 04/02/18 19:43 04/02/18 19:43 04/02/18 19:43 04/02/18 19:43 04/02/18 19:43 - Laboratory Laboratory results interpreted by me: 04/02/18 20:43 Urine Blood MODERATE H Ur Leukocyte Esterase LARGE H Discharge - Discharge Clinical Impression: Pyelonephritis Condition: Stable Disposition: HOME, SELF-CARE Additional Instructions: PYELONEPHRITIS: Your evaluation shows evidence of pyelonephritis. This is an infection in the kidney. Typical symptoms are fever, pain in the flank, pain on urination, and frequent urination. Many cases of pyelonephritis can be treated at home. Hospital care may be necessary for patients who are very ill, or elderly or . Pyelonephritis is treated with antibiotics. Be sure to take all the medication as prescribed. Drink plenty of liquids (about three quarts per day) . You may take acetaminophen for fever. You should feel significantly improved within two days. You should have a recheck of your urine in about one week to insure that the infection is gone. Return for a re-examination if your symptoms worsen in any way -- such as high fever, shaking chills, severe weakness or dizziness, severe pain, or inability to pass your urine. ANTINAUSEA MEDICATION: You have been given a medication to suppress nausea and vomiting. This type of medication can be given as a shot, pill, or suppository. It will usually last for many hours. Pills and shots usually last six to eight hours, suppositories last about 12 hours. For the typical illness, only one or two doses of the medication may be necessary. Mild lightheadedness may occur. This type of medicine can cause drowsiness. Do not drive or operate dangerous machinery while under its influence. Do not mix with alcohol. See your doctor at once if you have muscle spasms or tightness, or uncontrollable motions (particularly of the neck, mouth, or jaw). Persistent vomiting or severe lightheadedness should also be evaluated by the physician. ANTIBIOTIC THERAPY: You have been given an antibiotic prescription. It's important that you take all the medication, unless instructed otherwise by your physician. Failure to complete the entire course can result in relapse of your condition. Common side effects of antibiotics include nausea, intestinal cramping, or diarrhea. Women may develop vaginal yeast infections, and babies can get yeast (thrush) in the mouth following the use of antibiotics. Contact your physician if you develop significant side effects from this medication. Allergy to this antibiotic can result in hives, wheezing, faintness, or itching. If symptoms of allergy occur, stop the medication and call the doctor. CEPHALEXIN: The antibiotic you've been prescribed is a member of the cephalosporin class. This type of antibiotic covers a wide variety of infections, including those of the skin, lungs, and urinary tract. It's useful for staph infections. This antibiotic is slightly similar to the penicillin family. In rare cases , a person who is allergic to penicillin will also be allergic to this medication. If you have had a severe allergic reaction to penicillin, and have not taken this antibiotic since that time, notify your doctor. Antibiotics which cover many germs ("broad spectrum" antibiotics) are more likely to cause diarrhea or "yeast" infections. Women prone to vaginal yeast problems may suffer an attack after taking this antibiotic. In infants, oral thrush (white spots "stuck" on the cheek) or yeast diaper rash may result. See your doctor if these problems occur. Call at once if you develop itching, hives , shortness of breath, or lightheadedness. USE OF ACETAMINOPHEN (Tylenol): Acetaminophen may be taken for pain relief or fever control. It's much safer than aspirin, offering a wider range of "safe" dosages. It is safe during . Some brand names are Tylenol, Panadol, Datril, Anacin 3, Tempra, and Liquiprin. Acetaminophen can be repeated every four hours. The following are maximum recommended dosages: >89 pounds or adults 650 mg to 900 mg Acetaminophen can be repeated every four hours. Maximum dose not to exceed 4000 mg a day. FOLLOW-UP CARE: If you have been referred to a physician for follow-up care, call the physician s office for an appointment as you were instructed or within the next two days. If you experience worsening or a significant change in your symptoms, notify the physician immediately or return to the Emergency Department at any time for re-evaluation. Prescriptions: Cephalexin Monohydrate [Keflex 500 mg Capsule] 500 mg PO TID 7 Days capsule Ondansetron [Zofran Odt 4 mg Tablet] 1 - 2 tab PO Q4H PRN #15 tab.rapdis PRN Reason: For Nausea/Vomiting Phenazopyridine HCl [Pyridium 200 mg Tablet] 200 mg PO TID #15 tablet Referrals: FELIX BEAVERS MD [Primary Care Provider] - Follow up as needed
[2018-04-02 21:37] LABS: APPEARANCE,URINE SLIGHTLY-CLOUDY; BILIRUBIN,URINE NEGATIVE (NEGATIVE); COLOR,URINE YELLOW; GLUCOSE, URINE NEGATIVE (NEGATIVE); KETONES,URINE NEGATIVE (NEGATIVE); LEUKOCYTE ESTERASE,URINE LARGE (NEGATIVE); NITRITE,URINE NEGATIVE (NEGATIVE); PROTEIN,URINE NEGATIVE (NEGATIVE); URINE SPECIFIC GRAVITY 1.009; UROBILINOGEN,URINE NEGATIVE mg/dL (<2.0)
[2018-04-02] MEDS ORDERED: CEPHALEXIN 500 MG CAPSULE PO ONE (21:44)
[2018-04-02] MEDS ORDERED: ONDANSETRON 4 MG TAB.RAPDIS PO ONE (22:25)
[2018-04-02] MEDS ORDERED: NAPROXEN 250 MG TABLET PO ONE (22:25)
[2018-04-02] MEDS ORDERED: PHENAZOPYRIDINE HCL 200 MG TABLET PO ONE (22:25)
[2018-04-02] MEDS ORDERED: ONDANSETRON ODT 4 MG TAB (6 TAB/ER DISP) PO PRN (22:25)
[2018-04-02 23:12] VITALS: BP 122/80
== END 2018-04-02 23:00 | disposition home or self-care (01) ==
LOC: ER 19:35
DX: N12 Tubulo-interstitial nephritis, not specified as acute or chronic (principal); R10.9 Unspecified abdominal pain; R11.0 Nausea
CPT/HCPCS: 99283; 81025; 81001; S0119; J3490 ×2

== ENCOUNTER 2018-05-14 15:31 | Emergency (ER) | payer MEDICAID ==
--- NOTE | 2018-05-14 17:52 | ER Document Report ---
ED ENT - General Chief Complaint: Nasal Congestion Stated Complaint: HEAD CONGESTION Time Seen by Provider: 05/14/18 17:29 Mode of Arrival: Ambulatory Information source: Patient Notes: 32-year-old female presents to ED for complaint of cough cold congestion fever itchy eyes for 2 weeks. She states that she had a kidney infection about 3 weeks ago was on antibiotics and she had bronchitis 2 weeks ago was on another antibiotic now she is coughing up yellow stuff with itchy burning eyes and she has diarrhea from the antibiotics. Patient is alert and oriented respirations regular and unlabored speaking in full sentences walk with a even steady gait. As I was walking out of the room she states she is also having some right flank pain. Went back and discussed this pain. We will send a urine and get a visual acuity. TRAVEL OUTSIDE OF THE [place] IN LAST 30 DAYS: No - HPI Patient complains to provider of: Other - Cough cold congestion sore throat itchy eyes and right flank pain Onset: Other - 2-3 weeks Onset/Duration: Gradual, Persistent Severity: Moderate Pain Level: 3 Context: Recent Illness Location of pain: Nose, Sinus Associated symptoms: Congestion, Cough, Runny nose, Sinus pain, Sinus drainage, Other - Itchy eyes Similar symptoms previously: Yes Recently seen / treated by doctor: Yes - Related Data Allergies/Adverse Reactions: No Known Allergies Allergy (Verified 05/14/18 15:33) Past Medical History - General Information source: Patient - Social History Smoking Status: Current Some Day Smoker Cigarette use (# per day): Yes Chew tobacco use (# tins/day): No Smoking Education Provided: Yes - 4 minutes Frequency of alcohol use: Occasional Drug Abuse: Marijuana Family History: Reviewed & Not Pertinent Patient has suicidal ideation: No Patient has homicidal ideation: No - Past Medical History Cardiac Medical History: Reports: None Pulmonary Medical History: Reports: Hx Asthma - athletic, Hx Bronchitis EENT Medical History: Reports: None Neurological Medical History: Reports: None Endocrine Medical History: Reports: None Renal/ Medical History: Reports: None Malignancy Medical History: Reports: None GI Medical History: Reports: None Musculoskeletal Medical History: Reports None Skin Medical History: Reports None Psychiatric Medical History: Reports: Hx Anxiety, Hx Depression Traumatic Medical History: Reports: None Infectious Medical History: Reports: None Past Surgical History: Reports: Hx Section, Hx Gynecologic Surgery - camelia tubes removed d/t ectoptic preg, Hx Oral Surgery, Hx Urinary Tract Surgery - kidney infection, Other - Right Salpingectomy, Left salpingectomy, partial omentectomy - Immunizations Immunizations up to date: Yes Hx Diphtheria, Pertussis, Tetanus Vaccination: No Review of Systems - Review of Systems Constitutional: Recent illness EENT: Nose congestion, Nose discharge, Sinus pressure, Sinus discharge Cardiovascular: No symptoms reported Respiratory: Cough Gastrointestinal: Diarrhea Genitourinary: Flank pain Female Genitourinary: No symptoms reported Musculoskeletal: No symptoms reported Skin: No symptoms reported Hematologic/Lymphatic: No symptoms reported Neurological/Psychological: No symptoms reported -: Yes All other systems reviewed and negative Physical Exam - Vital signs Vitals: Temp Pulse Resp BP Pulse Ox 98.7 F 79 20 115/74 100 05/14/18 16:07 05/14/18 16:07 05/14/18 16:07 05/14/18 16:07 05/14/18 16:07 Interpretation: Normal - General General appearance: Appears well, Alert - HEENT Head: Normocephalic, Atraumatic Eyes: Tears Conjunctiva: Injected Cornea: Normal Pupils: PERRL Visual acuity- Right eye: 20/50 Visual acuity- Left eye: 20/25 Visual acuity- Both eyes: 20/25 Corrective lenses worn: No Ears: Normal External canal: Normal Tympanic membrane: Normal Sinus: Normal Nasal: Purulent discharge, Swelling Mouth/Lips: Normal Mucous membranes: Normal Pharynx: Normal Neck: Normal - Respiratory Respiratory status: No respiratory distress Chest status: Nontender Breath sounds: Normal Chest palpation: Normal - Cardiovascular Rhythm: Regular Heart sounds: Normal auscultation Murmur: No - Abdominal Inspection: Normal Distension: No distension Bowel sounds: Normal Tenderness: Nontender Organomegaly: No organomegaly - Back Back: CVA tenderness - Extremities General upper extremity: Normal inspection, Nontender, Normal color, Normal ROM , Normal temperature General lower extremity: Normal inspection, Nontender, Normal color, Normal ROM , Normal temperature, Normal weight bearing. No: Akosua's sign - Neurological Neuro grossly intact: Yes Cognition: Normal Orientation: AAOx4 [place] Coma Scale Eye Opening: Spontaneous [place] Coma Scale Verbal: Oriented [place] Coma Scale Motor: Obeys Commands [place] Coma Scale Total: 15 Speech: Normal Motor strength normal: LUE, RUE, LLE, RLE Sensory: Normal - Psychological Associated symptoms: Normal affect, Normal mood - Skin Skin Temperature: Warm Skin Moisture: Dry Skin Color: Normal Course - Re-evaluation Re-evalutation: 05/14/18 19:28 Urine results discussed with patient. Written report of urine results given to patient. Patient will be treated with viral eyedrops and discharged home with a upper respiratory infection. Patient to follow-up with the food stylist viral conjunctivitis. Patient was discharged home. - Vital Signs Vital signs: Temp Pulse Resp BP Pulse Ox 98.1 F 79 18 118/68 100 05/14/18 20:03 05/14/18 20:03 05/14/18 20:03 05/14/18 20:03 05/14/18 20:03 - Laboratory Laboratory results interpreted by me: 05/14/18 17:45 Urine Blood SMALL H Discharge - Discharge Clinical Impression: Viral conjunctivitis of both eyes, Flank pain URI (upper respiratory infection) Qualifiers: URI type: unspecified URI Qualified Code(s): J06.9 - Acute upper respiratory infection, unspecified Condition: Stable Disposition: HOME, SELF-CARE Additional Instructions: UPPER RESPIRATORY ILLNESS: You have a viral infection of the respiratory passages -- a "cold." This common infection causes nasal congestion, drainage, and often sore throat and cough. It is highly contagious. The disease usually lasts about 10 to 14 days. There is no "cure" for the viral infection -- it must run its course. If there is a complication, such as bacterial infection in the nose, sinuses, middle ear, or bronchial tubes, antibiotics may be required. The antibiotics won't affect the virus. Drink plenty of fluids. A humidifier may help. An expectorant medication or decongestant may make you more comfortable. Use acetaminophen or ibuprofen for fever or aches. See the doctor if fever persists over two days, if there is any significant worsening of your symptoms, or if you simply fail to improve as expected. CONJUNCTIVITIS: You have an infection in your eye, commonly known as "pink eye." Conjunctivitis causes redness, mild discomfort, itching, and mattering on the eyelids. It is very contagious, so you must be careful to wash your hands after touching your face so you don't pass the infection on to others. Conjunctivitis is caused by both viruses and bacteria. It usually responds quickly to treatment with antibiotic drops. These should be placed in the eye as prescribed (usually every three to four hours while you're awake). If you wear contact lenses, don't put them in your eyes until the infection is cleared and you are no longer using the drops (unless your doctor advises you otherwise). Should you develop increasing eye pain, severe swelling, decreased vision, or fail to improve as expected, please return for re-examination. EYEDROP USE: Eyedrops are most easily applied by pulling down on the cheek just below the lower eyelid. The lower lid will pop out to form a pouch into which you can drop the medicine. A small brief sting is not unusual, especially if the eye is reddened and irritated already. Use the drops exactly as recommended. You should see the doctor at once if there is a decrease in vision, swelling of the eye, or an increase in discomfort. COUGH-SUPPRESSANT & EXPECTORANT MEDICATION: You are to use a cough medication as needed for relief of symptoms. This medicine is a combination of an expectorant (to make the mucous thinner and more easily "coughed up") and a cough suppressant (to reduce the frequency of coughing). The cough-suppressant medicine is related to narcotics. You may experience mild nausea and sleepiness. Some patients who are very sensitive to narcotics may have stomach pain from this medicine. Taking the medicine with food reduces these side effects. Do not drive or work with machinery until you know how this medicine affects you. The expectorant should have no side effects. Iodine-containing expectorants (such as organidin) should not be taken by persons with active thyroid disease unless approved by your doctor. Call the doctor if you develop shortness of breath, hives, rash, itching, lightheadedness, or severe nausea and vomiting. USE OF ACETAMINOPHEN (Tylenol): Acetaminophen may be taken for pain relief or fever control. It's much safer than aspirin, offering a wider range of "safe" dosages. It is safe during . Some brand names are Tylenol, Panadol, Datril, Anacin 3, Tempra, and Liquiprin. Acetaminophen can be repeated every four hours. The following are maximum recommended dosages: >89 pounds or adults 650 mg to 900 mg Acetaminophen can be repeated every four hours. Maximum dose not to exceed 4000 mg a day. SMOKING: If you smoke, you should stop smoking. The tar and chemicals in cigarette smoke are harmful. Smoking has been shown to cause: emphysema chronic bronchitis lung cancer mouth and throat cancer stomach and pancreas cancer premature aging defects In addition, smoking increases ear and lung infections in children of smokers. FOLLOW-UP CARE: If you have been referred to a physician for follow-up care, call the physician s office for an appointment as you were instructed or within the next two days. If you experience worsening or a significant change in your symptoms, notify the physician immediately or return to the Emergency Department at any time for re-evaluation. Prescriptions: Trifluridine [Viroptic 1% Oph Soln 7.5 Ml Bottle] 1 drop BTH_EYE Q4 #1 bottle Forms: Smoking Cessation Education, Return to Work Referrals: FELIX BEAVERS MD [Primary Care Provider] - Follow up as needed NEENA EUBANKS MD [ACTIVE STAFF] - Follow up as needed
[2018-05-14 18:21] LABS: APPEARANCE,URINE CLEAR; BILIRUBIN,URINE NEGATIVE (NEGATIVE); COLOR,URINE AMBER; GLUCOSE, URINE NEGATIVE (NEGATIVE); KETONES,URINE NEGATIVE (NEGATIVE); LEUKOCYTE ESTERASE,URINE NEGATIVE (NEGATIVE); NITRITE,URINE NEGATIVE (NEGATIVE); PROTEIN,URINE NEGATIVE (NEGATIVE); UROBILINOGEN,URINE NEGATIVE mg/dL (<2.0)
[2018-05-14] MEDS ORDERED: TRIFLURIDINE 1% OPH SOLN 7.5 ML OU ONE (18:55)
[2018-05-14 20:04] VITALS: BP 118/68
== END 2018-05-14 20:02 | disposition home or self-care (01) ==
LOC: ER 15:31
DX: J06.9 Acute upper respiratory infection, unspecified (principal); B30.9 Viral conjunctivitis, unspecified; R10.9 Unspecified abdominal pain; R09.81 Nasal congestion; R05 Cough; R50.9 Fever, unspecified; R19.7 Diarrhea, unspecified; J02.9 Acute pharyngitis, unspecified; J34.89 Other specified disorders of nose and nasal sinuses; J45.909 Unspecified asthma, uncomplicated; F17.210 Nicotine dependence, cigarettes, uncomplicated; Z71.6 Tobacco abuse counseling
CPT/HCPCS: 99406; 99283; 87086; 81025; 87088; 81001; 87186; J3490

== ENCOUNTER → 2018-08-17 | Outpatient (CLI) | payer MEDICAID ==
--- NOTE | 2018-08-17 12:38 | WOMENS IMAGING REPORT ---
EXAM DESCRIPTION: TRANSVAGINAL ULTRASOUND COMPLETED DATE/TIME: 08/17/2018 10:45 am REASON FOR STUDY: PELVIC PAIN R10.2 PELVIC AND PERINEAL PAIN COMPARISON: None. TECHNIQUE: Dynamic and static grayscale images acquired of the pelvis via transvaginal approach and recorded on PACS. Additional selected color Doppler and spectral images recorded. LIMITATIONS: None. FINDINGS: UTERUS: Contour normal. No mass. Uterus is 8.6 x 5.7 x 4.4 cm in size. ENDOMETRIAL STRIPE: No focal or generalized thickening. No masses. Endometrial stripe 9 mm in thickn ess CERVIX: Closed, 3.3 cm in length. No nabothian cysts. RIGHT OVARY AND DOPPLER: Normal size, 3 x 2.2 x 1.8 cm. No worrisome masses. Normal arterial vascular flow without evidence for torsion. LEFT OVARY AND DOPPLER: Normal size, 3.5 x 2.6 x 2.4 cm. No worrisome masses. 3 cm simple cyst left ovary. Normal arterial vascular flow without evidence for torsion. FREE FLUID: None noted. OTHER: No other significant finding. IMPRESSION: 3 CM SIMPLE CYST LEFT OVARY. OTHERWISE UNREMARKABLE TRANSVAGINAL PELVIC ULTRASOUND. TECHNICAL DOCUMENTATION: JOB ID: [id number] [employer]- All Rights Reserved Reading location - IP/workstation name: [facility]
== END ==
LOC: WI 10:08
PROVIDERS: ATTEND Physician Assistant
DX: R10.2 Pelvic and perineal pain (principal)
CPT/HCPCS: 76830

== ENCOUNTER → 2019-11-24 | Outpatient (CLI) | payer MEDICAID ==
--- NOTE | 2019-11-24 14:49 | RADIOLOGY REPORT (SQ) ---
EXAM DESCRIPTION: CHEST 2 VIEWS COMPLETED DATE/TIME: 11/24/2019 2:35 pm REASON FOR STUDY: R05 COUGH COMPARISON: 07/05/2008 EXAM PARAMETERS: NUMBER OF VIEWS: two views TECHNIQUE: Digital Frontal and Lateral radiographic views of the chest acquired. RADIATION DOSE: NA LIMITATIONS: none FINDINGS: LUNGS AND PLEURA: No opacities, masses or pneumothorax. No pleural effusion. MEDIASTINUM AND HILAR STRUCTURES: No masses or contour abnormalities. HEART AND VASCULAR STRUCTURES: Heart normal size. No evidence for failure. BONES: No acute findings. HARDWARE: None in the chest. OTHER: No other significant finding. IMPRESSION: No focal airspace disease or other evidence of acute intrathoracic process. TECHNICAL DOCUMENTATION: JOB ID: [id number] 2010 [employer]- All Rights Reserved Reading location - IP/workstation name: [email or web address]
== END ==
LOC: RAD 14:21
PROVIDERS: ATTEND Physician Assistant
DX: R05 Cough (principal)
CPT/HCPCS: 71046

== ENCOUNTER → 2020-09-26 | Outpatient (CLI) | payer MEDICAID ==
--- NOTE | 2020-09-26 12:52 | RADIOLOGY REPORT (SQ) ---
EXAM DESCRIPTION: HAND LEFT 3 VIEWS IMAGES COMPLETED DATE/TIME: 09/26/2020 12:31 pm REASON FOR STUDY: (M79.645)PAIN IN LEFT FINGER(S) M79.645 PAIN IN LEFT FINGER(S) COMPARISON: None. EXAM PARAMETERS: NUMBER OF VIEWS: Three views. TECHNIQUE: AP, lateral and oblique radiographic images acquired of the left hand. LIMITATIONS: None. FINDINGS: MINERALIZATION: Normal. BONES: No acute fracture or dislocation. No worrisome bone lesions. No significant osteophytes. JOINTS: No erosions. No linsey-articular osteopenia. No chondrocalcinosis. SOFT TISSUES: No swelling. No calcifications. OTHER: No other significant finding. IMPRESSION: NEGATIVE STUDY OF THE LEFT HAND. NO EXPLANATION FOR PAIN. TECHNICAL DOCUMENTATION: JOB ID: [id number] 2010 [employer]- All Rights Reserved Reading location - IP/workstation name: [email or web address]
== END ==
LOC: RAD 12:15
PROVIDERS: ATTEND Physician Assistant
DX: M79.645 Pain in left finger(s) (principal)